=== PATIENT | female | born 1965 | race American Indian/Alaskan Native ===

== ENCOUNTER 2019-01-16 01:07 | Observation (INO) | payer BC ==
[2019-01-16] MEDS ORDERED: ASPIRIN PO ONE (01:29)
[2019-01-16 01:46] LABS: Basophils # (Auto) 0.1 K/mm3 (0.0-0.1); Eosinophils # (Auto) 0.1 K/mm3 (0.0-0.4); Eosinophils % (Auto) 1.7 % (0.0-4.3); Hemoglobin 12.1 gm/dl (10.1-14.3); Lymphocytes # (Auto) 2.6 K/mm3 (1.2-5.4); Lymphocytes % (Auto) 35.1 % (13.4-35.0); Mean Corpuscular HGB Conc 34 % (30-34); Mean Corpuscular Volume 86 fl (79-97); Monocytes # (Auto) 0.5 K/mm3 (0.0-0.8); Monocytes % (Auto) 7.3 % (0.0-7.3); Platelet Count 174 K/mm3 (140-440); Red Blood Count 4.19 M/mm3 (3.65-5.03); Red Cell Distribution Width 13.4 % (13.2-15.2)
[2019-01-16 02:06] LABS: BUN/Creatinine Ratio 14; Blood Urea Nitrogen 10 mg/dL (7-17); Calcium 9.3 mg/dL (8.4-10.2); Hemolysis Index 8
[2019-01-16] MEDS ORDERED: MORPHINE IV ONE (02:25)
--- NOTE | 2019-01-16 02:28 | Emergency Department Report ---
ED Chest Pain HPI - General Chief Complaint: Chest Pain Stated Complaint: CP/L SIDE FLANK PAIN/DIZZINESS Time Seen by Provider: 01/16/19 01:35 Source: patient Mode of arrival: Ambulatory Limitations: No Limitations - History of Present Illness Initial Comments: 53-year-old -[place] female presents to the emergency department with complaint of a three-day history of some left-sided lower chest and rib pain that has radiated into the middle of the chest. For the first 2 days it was an intermittent sharp and burning pain. However today it has become constant and is currently 9 out of 10 in intensity. She has no shortness of breath at rest b ut does have shortness of breath with the pain. She denies any nausea, vomiting, fever, back pain, diaphoresis. She took some Motrin at home for her symptoms without any relief. No recent travel or sick contacts at home. Her primary care physician is Dr. Castillo. She does not have any diamond driller. The patient says that she had a negative stress test about 2 or 3 years ago. She has a past medical history of diabetes. Severity scale (0 -10): 5 - Related Data Previous Rx's Medication Instructions Recorded Last Taken Type Aspirin EC [Aspirin Enteric Coated 81 mg PO QDAY #30 tablet. 09/08/16 Unknown Rx TAB] Allergies Allergy/AdvReac Type Severity Reaction Status Date / Time No Known Allergies Allergy Unverified 04/01/14 07:13 Heart Score - HEART Score History: Moderately suspicious EKG: Normal Age: 45-65 Risk factors: 1-2 risk factors Troponin: < normal limit HEART Score: 3 - Critical Actions Critical Actions: 0-3 pts:0.9-1.7%risk of adverse cardiac event.Candidate for discharge ED Review of Systems ROS: Stated complaint: CP/L SIDE FLANK PAIN/DIZZINESS Other details as noted in HPI Comment: All other systems reviewed and negative Constitutional: denies: chills, fever Eyes: denies: eye pain, vision change ENT: denies: ear pain, throat pain Respiratory: shortness of breath. denies: cough Cardiovascular: chest pain. denies: palpitations Gastrointestinal: denies: abdominal pain, vomiting Genitourinary: denies: dysuria, discharge Musculoskeletal: denies: back pain, arthralgia Skin: denies: rash, lesions Neurological: denies: headache, weakness ED Past Medical Hx - Past Medical History Previous Medical History?: Yes Hx Hypertension: Yes Hx Diabetes: Yes Additional medical history: Divertuculosis - Surgical History Past Surgical History?: Yes Additional Surgical History: HYSTERECTOMY - Social History Smoking Status: Never Smoker Substance Use Type: None - Medications Home Medications: Home Medications Medication Instructions Recorded Confirmed Last Taken Type Aspirin EC [Aspirin Enteric Coated 81 mg PO QDAY #30 tablet. 09/08/16 Unknown Rx TAB] ED Physical Exam - General Limitations: No Limitations - Other Other exam information: GENERAL: The patient is well-developed well-nourished. HENT: Normocephalic. Atraumatic. Patient has moist mucous membranes. EYES: Extraocular motions are intact. NECK: Supple. Trachea is midline. CHEST/LUNGS: Clear to auscultation. There is no respiratory distress noted. Chest pain is not reproducible to palpation of the chest wall. HEART/CARDIOVASCULAR: Regular. There is no tachycardia. There is no murmur. ABDOMEN: Abdomen is soft, nontender. Patient has normal bowel sounds. There is no abdominal distention. SKIN: Skin is warm and dry. NEURO: The patient is awake, alert, and oriented. The patient is cooperative. The patient has no focal neurologic deficits. The patient has normal speech. MUSCULOSKELETAL: There is no tenderness or deformity. There is no evidence of acute injury. ED Course Vital Signs 01/16/19 01/16/19 01/16/19 01:14 01:26 01:55 Temperature 97.8 F 98.2 F Pulse Rate 89 90 94 H Respiratory 18 18 22 Rate Blood Pressure 197/102 201/83 O2 Sat by Pulse 100 97 100 Oximetry 01/16/19 01/16/19 01/16/19 01:56 02:00 02:15 Temperature Pulse Rate 91 H 97 H Respiratory 18 20 20 Rate Blood Pressure 143/89 143/89 O2 Sat by Pulse 100 100 Oximetry 01/16/19 01/16/19 01/16/19 02:31 02:45 03:01 Temperature Pulse Rate 94 H 94 H 91 H Respiratory 20 11 L 16 Rate Blood Pressure 143/89 175/91 175/91 O2 Sat by Pulse 99 100 99 Oximetry 01/16/19 01/16/19 01/16/19 03:15 03:31 03:45 Temperature Pulse Rate 94 H 91 H 90 Respiratory 20 16 17 Rate Blood Pressure 175/91 175/91 175/91 O2 Sat by Pulse 98 98 98 Oximetry 01/16/19 01/16/19 04:01 04:15 Temperature Pulse Rate 90 89 Respiratory 18 17 Rate Blood Pressure 175/91 175/91 O2 Sat by Pulse 99 100 Oximetry RANJIT score - Ranjit Score Age > 65: (0) No Aspirin use within the Past 7 Days: (1) Yes 3 or more CAD Risk Factors: (0) No 2 or more Angina events in past 24 hrs: (1) Yes Known CAD with more than 50% Stenosis: (0) No Elevated Cardiac Markers: (0) No ST Deviation Greater than 0.5mm: (0) No RANJIT Score: 2 ED Medical Decision Making - Lab Data Result diagrams: 01/16/19 01:31 01/16/19 01:34 - EKG Data -: EKG Interpreted by Me EKG shows normal: sinus rhythm, axis, intervals, QRS complexes, ST-T waves Rate: normal - EKG Data When compared to previous EKG there are: no significant change Interpretation: normal EKG, unchanged when compared t (09/08/16) - Radiology Data Radiology results: report reviewed, image reviewed interpreted by me: Chest x-ray does not show any acute process. There are no pleural effusions, obvious pneumonia and there is no pneumothorax. PROCEDURE: CT ANGIO CHEST TECHNIQUE: Computerized tomographic angiography of the chest was performed after the IV injection of iodinated nonionic contrast including image processing. The image data was postprocessed using 2-dimensional multiplanar reformatted (MPR) and 3-dimensional (MIP and/or volume rendered) techniques. Automated exposure control, adjustment of mA and/or kV according to patient size, or iterative reconstruction dose optimization techniques were utilized. HISTORY: chest pain, elevated dimer COMPARISONS: None . FINDINGS: Heart and pericardium: Normal. Thoracic aorta: Normal. Pulmonary vasculature: There is no evidence of pulmonary arterial emboli. Lymph nodes: No enlarged thoracic lymph nodes. Lungs: Lungs are clear. No infiltrate, effusion or pneumothorax. Pleural space: No effusion, thickening, or pneumothorax. Musculoskeletal structures: No significant abnormality. Upper abdominal structures: No significant abnormality. IMPRESSION: There is no evidence of pulmonary arterial emboli. The lungs are clear. . This document is electronically signed by Daily Maciel DO., January 16 2019 04:58:47 AM ET Transcribed By: [facility] Dictated By: DAILY MACIEL MD Electronically Authenticated By: DAILY MACIEL MD Signed Date/Time: 01/16/19 0502 - Medical Decision Making This patient presents to the emergency department with a 3 day history of progressively worsening left-sided chest pain that now radiates into his middle of her chest. It is been about 2 or 3 years since the patient had a stress test. EKG does not show any signs of ST elevation VA. Chest x-ray is unremarkable. Patient's labs have been mostly unremarkable including negative troponins 2, but she does have a elevated d-dimer of greater than 1000. This reason a CT angiography of the chest was done that does not show any pulmonary embolism, dissection, aneurysm, or any other acute processes. The patient was given some pain medication but still continues to have some intermittent chest pains. I spoke with the patient's primary care physician, Dr. Castillo, who has graciously agreed to admit the patient to his service and has asked for bridging orders to be placed including a Lexiscan stress test. - Differential Diagnosis VA, PE, Costochondritis, GERD, pneumonia Critical Care Time: No Critical care attestation.: If time is entered above; I have spent that time in minutes in the direct care of this critically ill patient, excluding procedure time. ED Disposition Clinical Impression: Acute chest pain Hypertension Qualifiers: Hypertension type: essential hypertension Qualified Code(s): I10 - Essential (primary) hypertension Disposition: OP ADMIT IP TO THIS HOSP Is pt being admited?: Yes Condition: Fair Instructions: Chest Pain (ED), Hypertension (ED) Referrals: HELLEN BRANDT MD [Primary Care Provider] - 3-5 Days Time of Disposition: 05:25
--- NOTE | 2019-01-16 02:29 | XRay Report ---
PROCEDURE: XR CHEST 1V AP TECHNIQUE: Chest radiograph single view. HISTORY: Chest Pain COMPARISONS: 09/07/2016 . FINDINGS: Heart: Normal. Mediastinum/Vessels: Normal. Lungs/Pleural space: Normal. Bony thorax: No acute osseous abnormality. Life support devices: None. IMPRESSION: No acute cardiopulmonary abnormality. This document is electronically signed by Gurpreet Hart MD., January 16 2019 02:27:21 AM ET
--- NOTE | 2019-01-16 05:02 | Cat Scan Report ---
PROCEDURE: CT ANGIO CHEST TECHNIQUE: Computerized tomographic angiography of the chest was performed after the IV injection of iodinated nonionic contrast including image processing. The image data was postprocessed using 2-di mensional multiplanar reformatted (MPR) and 3-dimensional (MIP and/or volume rendered) techniques. Au tomated exposure control, adjustment of mA and/or kV according to patient size, or iterative reconstr uction dose optimization techniques were utilized. HISTORY: chest pain, elevated dimer COMPARISONS: None . FINDINGS: Heart and pericardium: Normal. Thoracic aorta: Normal. Pulmonary vasculature: There is no evidence of pulmonary arterial emboli. Lymph nodes: No enlarged thoracic lymph nodes. Lungs: Lungs are clear. No infiltrate, effusion or pneumothorax. Pleural space: No effusion, thickening, or pneumothorax. Musculoskeletal structures: No significant abnormality. Upper abdominal structures: No significant abnormality. IMPRESSION: There is no evidence of pulmonary arterial emboli. The lungs are clear. . This document is electronically signed by Daily Maciel DO., January 16 2019 04:58:47 AM ET
[2019-01-16] MEDS ORDERED: LOPRESSOR IV ONE (05:25)
[2019-01-16] MEDS ORDERED: MORPHINE IV PRN (09:09)
[2019-01-16] MEDS ORDERED: SODIUM CHLORIDE FLUSH SYRINGE 10 ML IV PRN (09:09)
--- NOTE | 2019-01-16 09:26 | History and Physical Report ---
History of Present Illness Date of examination: 01/16/19 Date of admission: 01/16/19 05:10 Chief complaint: Chest pain for 3 days History of present illness: Patient is a 43-year-old lady was a history of diabetes mellitus and hypertension who presented emergency Department on account of left-sided chest pain for the past 3 days. Initially intermittent but subsequently became constant. Exertional. Associated with shortness of breath. Denies any radiation. No orthopnea, proximal nocturnal dyspnea or palpitation. On admission to the emergency department systolic blood pressure was 173. EKG was unremarkable. Serial cardiac enzymes 2 were normal. Patient had elevated d- dimer for which CTA of the chest was done. Report was negative for any pulmonary embolism. Pt was commenced on oxygen, nitroglycerin, aspirin and morphine. Stress test was ordered since she has not had one for the past 2 years with multiple risk factors that includes hypertensive emergency and diabetes mellitus. Patient was also noted to have elevated blood sugar of 225. She was commenced on sliding scale insulin and consistent CHO diet. Past History Past Medical History: diabetes, hypertension, other (diverticulosis) Past Surgical History: hysterectomy Social history: denies: smoking, alcohol abuse, prescription drug abuse Family history: no significant family history Medications and Allergies Allergies Allergy/AdvReac Type Severity Reaction Status Date / Time No Known Allergies Allergy Unverified 04/01/14 07:13 Home Medications Medication Instructions Recorded Confirmed Last Taken Type AtorvaSTATin [Lipitor] 10 mg PO QHS 01/16/19 01/16/19 01/15/19 History Cyanocobalamin (Vitamin B-12) 1,000 mcg PO DAILY 01/16/19 01/16/19 01/15/19 History [Vitamin B12] Gabapentin [Neurontin] 100 mg PO Q8HR 01/16/19 01/16/19 01/15/19 History Glimepiride [Amaryl] 2 mg PO DAILY 01/16/19 01/16/19 01/15/19 History Insulin Glargine,Hum.rec.anlog 20 units SQ QHS 01/16/19 01/16/19 01/15/19 History [Toujennie Solostar] Lispro Insulin [HumaLOG] 8 unit SQ AC 01/16/19 01/16/19 01/15/19 History Losartan Potassium 100 mg PO DAILY 01/16/19 01/16/19 01/15/19 History Meloxicam [Mobic] 15 mg PO DAILY 01/16/19 01/16/19 01/15/19 History Vitamin D3 Complete Caplet 25 mcg PO DAILY 01/16/19 01/16/19 01/15/19 History Active Meds: Active Medications Amlodipine Besylate (Norvasc) 5 mg PO QDAY [facility] Aspirin (Ecotrin) 325 mg PO QDAY [facility] Atorvastatin Calcium (Lipitor) 40 mg PO QHS [facility] Gabapentin (Neurontin) 100 mg PO Q8HR [facility] Insulin Human Lispro (Humalog) 8 unit SUB-Q AC [facility] Losartan Potassium (Cozaar) 100 mg PO QDAY [facility] Miscellaneous Medication (Cyanocobalamin (Vitamin B-12) [Vitamin B12]) 1,000 mcg PO DAILY [facility] Miscellaneous Medication (Insulin Glargine,Hum.Rec.Anlog [Toujennie Solostlucius]) 20 units SQ QHS [facility] Miscellaneous Medication (Vitamin D3 Complete Caplet) 25 mcg PO DAILY [facility] Morphine Sulfate (Morphine) 2 mg IV Q4H PRN PRN Reason: Chest Pain unrelieved by NTG Nitroglycerin (Nitro-Bid 2%) 1 inch TP BIDNTG [facility]; Protocol Sodium Chloride (Sodium Chloride Flush Syringe 10 Ml) 10 ml IV PRN PRN PRN Reason: LINE FLUSH Review of systems Constitutional: Well Nourished and Well developed. Head: NC/ AT Eyes: Denies any visual impairments. No discharge from the eyes Nose: Denies any rhinorrhea or epistaxis Throats: Denies any post nasal drainage. Ears: Denies any hearing deficits Cardiovascular system: Denies any chest pain, shortness of breath, orthopnea, p aroxysmal nocturnal dyspnea, or palpitation. Respiratory system: Denies any cough, difficulty breathing, wheezing, pleuritic chest pain, Gastrointestinal system: Denies any abdominal pain, nausea vomiting, hematemesis or melena. Neurological system: Denies any headache, slurred speech, facial droop, lateralizing weakness Genitalia system: Denies any dysuria, urinary frequency or urgency, urethral discharge Skin: No rashes, hyperpigmented spots. Hematological: Denies any cervical tenderness hemorrhages or petechia. Immunological: Denies any multiple septic spots, Lymphatic: Denies any generalized lymphadenopathy. Endocrine: Denies any polyuria, polydipsia, polyphagia. No heat or cold intolerance. Musculoskeletal system: No joint pain or swelling. Psych: No visual, tactile, auditory or hallucination Exam - Physical Exam Narrative exam: Constitutional: Well-nourished well-developed. In no distress Head: Normocephalic atraumatic Eyes: Pupils are equal round and reactive to light Nose: No enlarged turbinates, no septal deviation. Mouth: Moist mucous membranes. Neck: Supple no thyromegaly. No bruit. No JVD Heart: Regular rate and rhythm, S1-S2 normal. No rubs murmurs or gallop Lungs: Clear to auscultation bilaterally. no rales or rhonchi Abdomen: Soft, nontender. Bowel sound are present. Extremities: No edema, no cyanosis, no clubbing. Neuro: Alert oriented Oriented x3. No focal sensory or motor deficit. Skin: No rashes or hyperpigmented spots Musculoskeletal system: No joint pain or swelling Hematological: No petechia or subcutanous hemorrhages. Immunological: No multiple septic spots on the skin Lymphatic: No generalized lymphadenopathy Psychiatry: Euthymic. Calm. - Constitutional Vitals: Temp Pulse Resp BP Pulse Ox 98.6 F 85 16 156/72 100 01/16/19 07:33 01/16/19 07:33 01/16/19 07:33 01/16/19 07:33 01/16/19 07:33 Results - Labs CBC & Chem 7: 01/16/19 01:31 01/16/19 01:34 Labs: Abnormal lab results 01/16/19 01/16/19 01/16/19 Range/Units 01:31 01:34 03:02 Lymph % (Auto) 35.1 H (13.4-35.0) % D-Dimer 1268.44 H (0-234) ng/mlDDU Sodium 146 H (137-145) mmol/L Glucose 225 H (65-100) mg/dL POC Glucose (70-105) 01/16/19 Range/Units 08:08 Lymph % (Auto) (13.4-35.0) % D-Dimer (0-234) ng/mlDDU Sodium (137-145) mmol/L Glucose (65-100) mg/dL POC Glucose 178 H (70-105) Assessment and Plan 5 by mouth daily was a history of hypertension and diabetes mellitus presented to the emergency department on account of 3 day history of chest pain. Initial set of cardiac enzymes were normal. EKG was normal. I delivered blood pressure 173 and blood sugar. This was commenced on oxygen nitroglycerin has been on morphine. Stress test was ordered. Blood pressure control was commenced with oral antihypertensives. - Chest pain Troponin T 2 were normal. Comments patient oxygen nitroglycerin and aspirin and morphine. Stress thallium ordered - Hypertensive emergency Commence patient on losartan 100 mg daily, Amlodipine 10 mg daily - Diabetes mellitus type 2 Obtain A1c, lipid panel, urine microalbumin, Commence sliding scale insulin Consistent carbohydrates diet -ACP: Patient is full code. - Disposition: Discharge patient home if stress thallium is normal and blood pressure controlled. - Time spent: 35 minutes in direct patient care and review of laboratory and radiological data.
[2019-01-16] MEDS ORDERED: D50W (25GM) Syringe IV PRN (09:32)
[2019-01-16] MEDS ORDERED: CYANOCOBALAMIN 1000 MCG PO SCH (10:00)
[2019-01-16] MEDS ORDERED: VITAMIN D3 COMPLETE PO SCH (10:00)
[2019-01-16] MEDS ORDERED: LEXISCAN IV ONE (10:18)
[2019-01-16 13:06] LABS: Basophils % (Auto) 0.4 % (0.0-1.8); Eosinophils # (Auto) 0.1 K/mm3 (0.0-0.4); Eosinophils % (Auto) 1.2 % (0.0-4.3); Hematocrit 36.6 % (30.3-42.9); Hemoglobin 12.5 gm/dl (10.1-14.3); Lymphocytes # (Auto) 2.3 K/mm3 (1.2-5.4); Lymphocytes % (Auto) 32.9 % (13.4-35.0); Mean Corpuscular HGB Conc 34 % (30-34); Mean Corpuscular Volume 85 fl (79-97); Monocytes # (Auto) 0.4 K/mm3 (0.0-0.8); Platelet Count 182 K/mm3 (140-440); Red Blood Count 4.29 M/mm3 (3.65-5.03); Red Cell Distribution Width 13.1 % (13.2-15.2)
[2019-01-16] MEDS: NEURONTIN PO SCH ×3 (13:14→22:43)
[2019-01-16] MEDS: COZAAR PO SCH (13:31)
[2019-01-16] MEDS: NORVASC PO SCH (13:32)
[2019-01-16] MEDS: NITRO-BID 2% TP SCH (13:33)
[2019-01-16] MEDS: HumaLOG SUB-Q SCH ×2 (13:35→16:17)
[2019-01-16 13:39] LABS: BUN/Creatinine Ratio 18; Blood Urea Nitrogen 9 mg/dL (7-17); Chol/HDL Ratio 2.59 %; HDL Cholesterol 49 mg/dL (40-59); Hemolysis Index 18; LDL Cholesterol,Direct 70 mg/dL (50-130)
[2019-01-16 18:21] LABS: Creatinine,Urine 66.2 mg/dL (0.1-20.0); Microalbumin/Creatinine Ratio 63.4 ug/mg
[2019-01-16] MEDS ORDERED: INSULIN GLARGINE HUM REC ANLOG 20 UNIT SQ SCH (22:00)
[2019-01-16] MEDS ORDERED: LANTUS SUB-Q SCH (22:00)
--- NOTE | 2019-01-17 04:18 | Treadmill Report ---
NUCLEAR PERFUSION SCAN REFERRING PHYSICIAN: Keyonna Castillo MD PROTOCOL: The patient was brought to the stress lab in a postabsorptive state, given 10 mCi of technetium 99m at rest. The patient underwent rest imaging. The patient underwent Lexiscan stress test. At peak stress, the patient was given 26 mCi of technetium 99m. Shortly thereafter, the patient underwent stress imaging. Raw imaging reveals mild GI artifact. No significant motion artifact. A SPECT imaging examined carefully in horizontal long axis, vertical long axis, and short axis views. There is normal homogenous uptake of radioisotope in all reported segments. No evidence of significant fixed or reversible perfusion defects suggestive of prior infarction or ischemia. Gated wall motion reveals normal systolic thickening and calculated ejection fraction of 55%. No TID. CONCLUSIONS: 1. Normal myocardial perfusion scan without evidence of active ischemia or prior infarction. 2. Normal left ventricular systolic performance without evidence of transient ischemic dilatation or stress-induced segmental wall motion abnormalities. [facility]# [id number] ELINA/AURELIO
[2019-01-17] MEDS: NITRO-BID 2% TP SCH ×2 (06:46→13:57)
[2019-01-17] MEDS: NEURONTIN PO SCH ×2 (06:46→13:56)
[2019-01-17 07:15] LABS: INR 1.03 (0.87-1.13)
[2019-01-17 07:25] LABS: Alanine Aminotransferase 8 units/L (7-56); Albumin 3.4 g/dL (3.9-5); BUN/Creatinine Ratio 13; Blood Urea Nitrogen 8 mg/dL (7-17); Hemolysis Index 12
[2019-01-17] MEDS ORDERED: ECOTRIN PO SCH (10:00)
[2019-01-17] MEDS ORDERED: VITAMIN B-12 PO SCH (10:00)
[2019-01-17] MEDS ORDERED: ZESTRIL PO SCH (10:00)
[2019-01-17] MEDS ORDERED: VITAMIN D3 PO SCH (10:00)
[2019-01-17] MEDS: NORVASC PO SCH (11:07)
[2019-01-17] MEDS: COZAAR PO SCH (11:08)
[2019-01-17] MEDS: HumaLOG SUB-Q SCH ×2 (11:09→13:56)
[2019-01-17 11:10] VITALS: BP 152/69
--- NOTE | 2019-01-17 12:09 | Discharge Summary ---
Providers - Providers Date of Admission: 01/16/19 05:10 Date of discharge: 01/17/19 Attending physician: VIJAY DELGADO 01/16/19 Consult to Cardiac Rehabilitation [CONS] Routine Reason For Exam: Phase I 01/16/19 09:32 Consult to Dietitian/Nutrition [CONS] Routine Physician Instructions: Reason For Exam: Reason for Consult: Diet education Primary care physician: HELLEN BRANDT Hospitalization Reason for admission: chest pain, hypertensive emergency, diabetes mellitus Condition: Fair Pertinent studies: EKG was normal, decision was unremarkable for any acute events, CT angiography chest that showed no PE, stress test that was normal Procedures: None Hospital course: Patient is a 43-year-old lady was a history of diabetes mellitus and hypertension who presented emergency Department on account of left-sided chest pain for the past 3 days. Initially intermittent but subsequently became constant. Exertional. Associated with shortness of breath. Denies any radiation. No orthopnea, proximal nocturnal dyspnea or palpitation. On admission to the emergency department systolic blood pressure was 173. EKG was unremarkable. Serial cardiac enzymes 2 were normal. Patient had elevated d- dimer for which CTA of the chest was done. Report was negative for any pulmonary embolism. Pt was commenced on oxygen, nitroglycerin, aspirin and morphine. Stress test was ordered since she has not had one for the past 2 years with multiple risk factors that includes hypertensive emergency, strong family history of myocardial infarction, and diabetes mellitus. Patient was also noted to have elevated blood sugar of 225. She was commenced on sliding scale insulin and consistent CHO diet. Blood pressure on blood sugar levels were improved. Stress test was done. Report was normal. Patient is therefore been discharged today to follow with me in 2-5 days. Disposition: - TO HOME OR SELFCARE Core Measure Documentation - Palliative Care Palliative Care/ Comfort Measures: Not Applicable - Core Measures Any of the following diagnoses?: none Exam - Physical Exam Narrative exam: Constitutional: Well-nourished well-developed. In no distress Head: Normocephalic atraumatic Eyes: Pupils are equal round and reactive to light Nose: No enlarged turbinates, no septal deviation. Mouth: Moist mucous membranes. Neck: Supple no thyromegaly. No bruit. No JVD Heart: Regular rate and rhythm, S1-S2 normal. No rubs murmurs or gallop Lungs: Clear to auscultation bilaterally. no rales or rhonchi Abdomen: Soft, nontender. Bowel sound are present. Extremities: No edema, no cyanosis, no clubbing. Neuro: Alert oriented Oriented x3. No focal sensory or motor deficit. Skin: No rashes or hyperpigmented spots Musculoskeletal system: No joint pain or swelling Hematological: No petechia or subcutanous hemorrhages. Immunological: No multiple septic spots on the skin Lymphatic: No generalized lymphadenopathy Psychiatry: Euthymic. Calm. - Constitutional Vitals: Temp Pulse Resp BP Pulse Ox 98.0 F 91 H 18 152/69 97 01/17/19 04:01 01/17/19 11:09 01/17/19 04:01 01/17/19 11:09 01/16/19 23:56 Plan Activity: advance as tolerated Weight Bearing Status: Weight Bear as Tolerated Diet: diabetic Follow up with: VIJAY DELGADO MD [Staff Physician] - 7 Days HELLEN BRANDT MD [Primary Care Provider] - 14 Days Forms: Work/School Release Form Prescriptions: Aspirin EC 81 mg PO QDAY #30 tablet Lispro Insulin [HumaLOG] 8 unit SQ AC #300 units AtorvaSTATin [Lipitor] 20 mg PO QHS #30 tablet Losartan Potassium 100 mg PO DAILY #30 tablet amLODIPine [Norvasc] 10 mg PO QDAY #30 tablet Cyanocobalamin [Vitamin B-12] 1,000 mcg PO QDAY #30 tablet Cholecalciferol Vit D3 [Vitamin D3 1,000 UNIT TAB] 1,000 unit PO QDAY #30 tablet
== END 2019-01-17 15:30 | disposition home or self-care (01) ==
LOC: ED 01:07 → EEVIPCON 01:07 → 4A 05:10
PROVIDERS: ADMIT Family Medicine; ATTEND Family Medicine
DX: R07.89 Other chest pain (principal); I10 Essential (primary) hypertension; E11.9 Type 2 diabetes mellitus without complications; I16.0 Hypertensive urgency; Z90.710 Acquired absence of both cervix and uterus
CPT/HCPCS: 36415; 71045; 71275; 78452; 80048; 80053; 80061; 82043; 82962; 83036; 83735; 83880; 84100; 84484; 85025; 85379; 85610; 93005; 93010; 93017; 96372; 96374; 99284; A9270; A9502; G0378; J2270; J2785; J3246; Q9967; J1815

== ENCOUNTER 2019-01-26 08:58 | Outpatient (CLI) | payer BC ==
--- NOTE | 2019-01-26 11:46 | Cat Scan Report ---
CT ABDOMEN AND PELVIS WITH CONTRAST HISTORY: ABDOMINAL PAIN LEFT. COMPARISON: None. TECHNIQUE: CT images of the abdomen and pelvis were obtained following administration of intravenous contrast. All CT scans at this location are performed using CT dose reduction for ALARA by means of automated exposure control. CONTRAST: 100 ml of intravenous contrast administered. FINDINGS: Lungs/bones: The lung bases are clear. Normal heart size. [id number] thoracolumbar spondylosis is noted. No fracture or suspicious bony lesion Abdomen/pelvis: There are a few small calcified gallstones in the gallbladder. The gallbladder is pa rtially contracted. No evidence for biliary dilatation, wall thickening or obvious choledocholithiasi s. Normal pancreas, spleen, kidneys and adrenal glands. The bowel loops are within normal limits. No evidence for obstruction or focal inflammation. Normal a ppendix. Hysterectomy changes are noted. A 1.8 cm left ovarian cyst is identified. The right adnexa is unremar kable. The kidneys, renal collecting systems and bladder are unremarkable. No evidence for ascites, free air or bulky adenopathy IMPRESSION: 1. No acute inflammatory process. 2. 1.8 cm left ovarian cyst. 3. Cholelithiasis. 4. Hysterectomy. Signer Name: Patric Tobias Jr, MD Signed: 01/26/2019 12:42 PM Workstation Name: [id number]
== END 2019-01-26 08:59 | disposition home or self-care (01) ==
LOC: CT 08:58
PROVIDERS: ATTEND Family Medicine
DX: K80.20 Calculus of gallbladder without cholecystitis without obstruction (principal); N83.202 Unspecified ovarian cyst, left side; M47.815 Spondylosis without myelopathy or radiculopathy, thoracolumbar region; I10 Essential (primary) hypertension; Z90.710 Acquired absence of both cervix and uterus
CPT/HCPCS: 74177; Q9967

== ENCOUNTER 2021-02-14 19:30 | Emergency (ER) | payer BC ==
[2021-02-14 20:03] VITALS: BP 148/76
[2021-02-14] MEDS ORDERED: SODIUM CHLORIDE 0.9% 1000 ML 1,000 ML IV ONE ×2 (22:10→23:31)
[2021-02-14] MEDS ORDERED: KETOROLAC 30 MG/1 ML INJ IV ONE (22:12)
[2021-02-14 23:13] LABS: Basophils # (Auto) 0.1 K/mm3 (0.0-0.1); Basophils % (Auto) 0.8 % (0.0-1.8); Eosinophils % (Auto) 0.1 % (0.0-4.3); Hematocrit 33.6 % (30.3-42.9); Hemoglobin 11.2 gm/dl (10.1-14.3); Lymphocytes # (Auto) 1.4 K/mm3 (1.2-5.4); Lymphocytes % (Auto) 7.9 % (13.4-35.0); Mean Corpuscular HGB Conc 34 % (30-34); Mean Corpuscular Volume 84 fl (79-97); Monocytes # (Auto) 1.3 K/mm3 (0.0-0.8); Monocytes % (Auto) 7.2 % (0.0-7.3); Platelet Count 201 K/mm3 (140-440); Red Cell Distribution Width 13.3 % (13.2-15.2)
[2021-02-14 23:26] LABS: Albumin 3.4 g/dL (3.9-5); Calcium 8.5 mg/dL (8.4-10.2)
--- NOTE | 2021-02-14 23:37 | Emergency Department Report ---
ED General Adult HPI - General Chief complaint: Wound/Laceration Stated complaint: LT FOOT ULCER SENT BY DR ELY?: No Time Seen by Provider: 02/14/21 20:51 Source: patient Mode of arrival: Ambulatory Limitations: No Limitations - History of Present Illness Initial comments: This is a 55-year-old female with a past medical history of diabetes mellitus type 2 controlled with medication who presents to the ED complaining of left leg redness and swelling x2 to 3 days. Patient states that she went to see her primary care today Dr. Delgado who told her to present to the emergency room for treatment. Patient denies any fever, chills, nausea vomiting or diarrhea. Patient states that she did notice wound at the bottom of her foot about a week ago. Severity scale (0 -10): 3 - Related Data Home Medications Medication Instructions Recorded Confirmed Last Taken Cyanocobalamin (Vitamin B-12) 1,000 mcg PO DAILY 01/16/19 01/16/19 01/15/19 [Vitamin B12] Glimepiride [Amaryl] 2 mg PO DAILY 01/16/19 01/16/19 01/15/19 Insulin Glargine,Hum.rec.anlog 20 units SQ QHS 01/16/19 01/16/19 01/15/19 [Toujeo Solostar] Vitamin D3 Complete Caplet 25 mcg PO DAILY 01/16/19 01/16/19 01/15/19 Previous Rx's Medication Instructions Recorded Last Taken Type Aspirin EC [Ecotrin] 81 mg PO QDAY #30 tablet 01/17/19 Unknown Rx AtorvaSTATin [Lipitor] 20 mg PO QHS #30 tablet 01/17/19 Unknown Rx Cholecalciferol Vit D3 [Vitamin D3 1,000 unit PO QDAY #30 tablet 01/17/19 Unknown Rx 1,000 UNIT TAB] Cyanocobalamin [Vitamin B-12] 1,000 mcg PO QDAY #30 tablet 01/17/19 Unknown Rx Gabapentin 100 mg PO Q8HR capsule 01/17/19 Unknown Rx Insulin Glargine [Lantus VIAL] 20 units SUB-Q QHS units 01/17/19 Unknown Rx Lispro Insulin [HumaLOG] 8 unit SQ AC #300 units 01/17/19 Unknown Rx Losartan Potassium 100 mg PO DAILY #30 tablet 01/17/19 Unknown Rx amLODIPine 10 mg PO QDAY #30 tablet 01/17/19 Unknown Rx Clindamycin [Clindamycin CAP] 300 mg PO Q8H #30 cap 02/15/21 Unknown Rx Ibuprofen [Motrin] 800 mg PO Q8HR #30 tablet 02/15/21 Unknown Rx Allergies Allergy/AdvReac Type Severity Reaction Status Date / Time No Known Allergies Allergy Unverified 04/01/14 07:13 ED Review of Systems ROS: Stated complaint: LT FOOT ULCER SENT BY Other details as noted in HPI Comment: All other systems reviewed and negative ED Past Medical Hx - Past Medical History Previous Medical History?: Yes Hx Hypertension: Yes Hx Diabetes: Yes Additional medical history: Divertuculosis - Surgical History Past Surgical History?: Yes Additional Surgical History: HYSTERECTOMY - Social History Smoking Status: Never Smoker - Medications Home Medications: Home Medications Medication Instructions Recorded Confirmed Last Taken Type Cyanocobalamin (Vitamin B-12) 1,000 mcg PO DAILY 01/16/19 01/16/19 01/15/19 History [Vitamin B12] Glimepiride [Amaryl] 2 mg PO DAILY 01/16/19 01/16/19 01/15/19 History Insulin Glargine,Hum.rec.anlog 20 units SQ QHS 01/16/19 01/16/19 01/15/19 History [Toujeo Solostar] Vitamin D3 Complete Caplet 25 mcg PO DAILY 01/16/19 01/16/19 01/15/19 History Aspirin EC [Ecotrin] 81 mg PO QDAY #30 tablet 01/17/19 Unknown Rx AtorvaSTATin [Lipitor] 20 mg PO QHS #30 tablet 01/17/19 Unknown Rx Cholecalciferol Vit D3 [Vitamin D3 1,000 unit PO QDAY #30 tablet 01/17/19 Unknown Rx 1,000 UNIT TAB] Cyanocobalamin [Vitamin B-12] 1,000 mcg PO QDAY #30 tablet 01/17/19 Unknown Rx Gabapentin 100 mg PO Q8HR capsule 01/17/19 Unknown Rx Insulin Glargine [Lantus VIAL] 20 units SUB-Q QHS units 01/17/19 Unknown Rx Lispro Insulin [HumaLOG] 8 unit SQ AC #300 units 01/17/19 Unknown Rx Losartan Potassium 100 mg PO DAILY #30 tablet 01/17/19 Unknown Rx amLODIPine 10 mg PO QDAY #30 tablet 01/17/19 Unknown Rx Clindamycin [Clindamycin CAP] 300 mg PO Q8H #30 cap 02/15/21 Unknown Rx Ibuprofen [Motrin] 800 mg PO Q8HR #30 tablet 02/15/21 Unknown Rx ED Physical Exam - General Limitations: No Limitations General appearance: alert, in no apparent distress - Head Head exam: Present: atraumatic, normocephalic - Eye Eye exam: Present: normal appearance - ENT ENT exam: Present: mucous membranes moist - Neck Neck exam: Present: normal inspection, full ROM - Respiratory Respiratory exam: Present: normal lung sounds bilaterally. Absent: respiratory distress, wheezes, rales, chest wall tenderness, accessory muscle use - Cardiovascular Cardiovascular Exam: Present: regular rate, normal rhythm. Absent: systolic murmur, diastolic murmur, rubs, gallop - GI/Abdominal GI/Abdominal exam: Present: soft, normal bowel sounds - Extremities Exam Extremities exam: Present: normal inspection, full ROM - Expanded Lower Extremity Exam Left Foot/Toe exam: Present: full ROM, tenderness, swelling, erythema. Absent: abrasion, laceration, ecchymosis, deformity, dislocation, puncture wound, foreign body Neuro vascular tendon exam: Present: no vascular compromise Gait: Positive: observed and normal - Back Exam Back exam: Present: normal inspection - Neurological Exam Neurological exam: Present: alert, oriented X3, CN II-XII intact, normal gait - Psychiatric Psychiatric exam: Present: normal affect, normal mood - Skin Skin exam: Present: warm, dry, intact, normal color. Absent: rash ED Course Vital Signs 02/14/21 02/15/21 20:02 03:30 Temperature 98.5 F Pulse Rate 107 H 93 H Respiratory 18 17 Rate Blood Pressure 148/76 O2 Sat by Pulse 99 100 Oximetry ED Medical Decision Making - Lab Data Result diagrams: 02/14/21 22:53 02/14/21 22:53 Laboratory Last Values WBC 17.3 K/mm3 (4.5-11.0) H 02/14/21 22:53 RBC 4.00 M/mm3 (3.65-5.03) 02/14/21 22:53 Hgb 11.2 gm/dl (10.1-14.3) 02/14/21 22:53 Hct 33.6 % (30.3-42.9) 02/14/21 22:53 MCV 84 fl (79-97) 02/14/21 22:53 MCH 28 pg (28-32) 02/14/21 22:53 MCHC 34 % (30-34) 02/14/21 22:53 RDW 13.3 % (13.2-15.2) 02/14/21 22:53 Plt Count 201 K/mm3 (140-440) 02/14/21 22:53 Lymph % (Auto) 7.9 % (13.4-35.0) L 02/14/21 22:53 Brantley % (Auto) 7.2 % (0.0-7.3) 02/14/21 22:53 Eos % (Auto) 0.1 % (0.0-4.3) 02/14/21 22:53 Baso % (Auto) 0.8 % (0.0-1.8) 02/14/21 22:53 Lymph # (Auto) 1.4 K/mm3 (1.2-5.4) 02/14/21 22:53 Brantley # (Auto) 1.3 K/mm3 (0.0-0.8) H 02/14/21 22:53 Eos # (Auto) 0.0 K/mm3 (0.0-0.4) 02/14/21 22:53 Baso # (Auto) 0.1 K/mm3 (0.0-0.1) 02/14/21 22:53 Seg Neutrophils % 84.0 % (40.0-70.0) H 02/14/21 22:53 Seg Neutrophils # 14.5 K/mm3 (1.8-7.7) H 02/14/21 22:53 Sodium 133 mmol/L (137-145) L 02/14/21 22:53 Potassium 4.3 mmol/L (3.6-5.0) 02/14/21 22:53 Chloride 97.0 mmol/L (98-107) L 02/14/21 22:53 Carbon Dioxide 20 mmol/L (22-30) L 02/14/21 22:53 Anion Gap 20 mmol/L 02/14/21 22:53 BUN 27 mg/dL (7-17) H 02/14/21 22:53 Creatinine 1.3 mg/dL (0.6-1.2) H 02/14/21 22:53 Estimated GFR 51 ml/min 02/14/21 22:53 BUN/Creatinine Ratio 21 % 02/14/21 22:53 Glucose 319 mg/dL (65-100) H 02/14/21 22:53 Lactic Acid 1.40 mmol/L (0.7-2.0) 02/14/21 22:53 Calcium 8.5 mg/dL (8.4-10.2) 02/14/21 22:53 Total Bilirubin 0.70 mg/dL (0.1-1.2) 02/14/21 22:53 AST 10 units/L (5-40) 02/14/21 22:53 ALT 8 units/L (7-56) 02/14/21:53 Alkaline Phosphatase 106 units/L (35-129) 02/14/21 22:53 Total Protein 7.3 g/dL (6.3-8.2) 02/14/21:53 Albumin 3.4 g/dL (3.9-5) L 02/14/21 22:53 Albumin/Globulin Ratio 0.9 % 02/14/21 22:53 - Medical Decision Making This is a 45-year-old female with a history of diabetes who presents with cell ulitis of the left foot. Leukocytosis is due to cellulitis of the foot. Lactic acid within normal limits all other labs within normal limits. Discussed all findings with the patient. Patient received 2 L of fluids in the ED. Patient received Zosyn and clindamycin in the emergency department. Patient is in no acute distress upon reevaluation patient was sleeping comfortably in the ED bed. Discussed continue oral antibiotics at home. Discussed follow-up with her primary care physician. Discussed with patient if any worsening symptoms she may return to the ED. Patient is ambulatory without any problems. Vital signs are normal she has no neurological deficit. At this time patient is safe for discharge with follow-up instructions with Dr ocasio Critical care attestation.: If time is entered above; I have spent that time in minutes in the direct care of this critically ill patient, excluding procedure time. ED Disposition Clinical Impression: Cellulitis of foot, Foot ulcer due to secondary DM Disposition: - TO HOME OR SELFCARE Is pt being admited?: No Does the pt Need Aspirin: No Condition: Stable Instructions: Diabetes Mellitus and Foot Care, Cellulitis, Adult, [id number], Diabetes Mellitus Type 2 in Adults (ED) Additional Instructions: Make sure to follow up with the primary care physician as discussed. Take all your medications as you've been prescribed. If you have any worsening symptoms or develop new symptoms please return to ED immediately. Prescriptions: Clindamycin [Clindamycin CAP] 300 mg PO Q8H #30 cap Ibuprofen [Motrin] 800 mg PO Q8HR #30 tablet Referrals: AGNES MORALES MD [Primary Care Provider] - 3-5 Days VIJAY DELGADO MD [Staff Physician] - 3-5 Days Forms: Work/School Release Form(ED) Time of Disposition: 01:39
[2021-02-15] MEDS ORDERED: PIPERACIL-TAZO 2.25 GM/50 ML 2.25 GM/50 ML BAG IV ONE (01:11)
== END 2021-02-15 03:30 | disposition home or self-care (01) ==
LOC: ED 19:30
DX: E11.621 Type 2 diabetes mellitus with foot ulcer (principal); L03.116 Cellulitis of left lower limb; I10 Essential (primary) hypertension; Z90.710 Acquired absence of both cervix and uterus; Z79.4 Long term (current) use of insulin; Z79.899 Other long term (current) drug therapy
CPT/HCPCS: 36415; 80053; 82140; 85025; 96361; 96365; 96367; 96375; 99283; J1885; J2543; J7030

== ENCOUNTER 2021-03-01 09:57 | Outpatient (CLI) | payer BC ==
[2021-03-01] MEDS ORDERED: LIDOCAINE (4%) 40 MG/ML TOPICAL SOLN 50 ML BOTTLE TP ONE (10:15)
[2021-03-01] MEDS ORDERED: SILVER NITRATE APPLICATOR 1 EA TP ONE (12:32)
[2021-03-01] MEDS ORDERED: SODIUM HYPOCHLORITE, DAKIN'S FULL STRENGTH (0.5%) 473 ML TOPICAL SOLN TP ONE (12:33)
== END 2021-03-01 09:58 | disposition home or self-care (01) ==
LOC: WOUND 09:57
PROVIDERS: ATTEND Surgery
DX: E11.621 Type 2 diabetes mellitus with foot ulcer (principal); L97.525 Non-pressure chronic ulcer of other part of left foot with muscle involvement without evidence of necrosis; I10 Essential (primary) hypertension; L84 Corns and callosities; Z79.82 Long term (current) use of aspirin; Z90.710 Acquired absence of both cervix and uterus
CPT/HCPCS: 11043; 11046; 82962; G0463; 99215

== ENCOUNTER 2021-03-08 10:30 | Outpatient (CLI) | payer BC ==
[2021-03-08] MEDS ORDERED: LIDOCAINE (4%) 40 MG/ML TOPICAL SOLN 50 ML BOTTLE TP SCH (11:00)
[2021-03-08] MEDS ORDERED: SILVER NITRATE APPLICATOR 1 EA TP ONE (11:40)
[2021-03-08] MEDS ORDERED: SODIUM HYPOCHLORITE, DAKIN'S FULL STRENGTH (0.5%) 473 ML TOPICAL SOLN TP ONE (11:51)
== END 2021-03-08 10:31 | disposition home or self-care (01) ==
LOC: WOUND 10:30
PROVIDERS: ATTEND Surgery
DX: E11.621 Type 2 diabetes mellitus with foot ulcer (principal); L97.524 Non-pressure chronic ulcer of other part of left foot with necrosis of bone; E11.69 Type 2 diabetes mellitus with other specified complication; M86.672 Other chronic osteomyelitis, left ankle and foot; I10 Essential (primary) hypertension; L84 Corns and callosities; Z79.82 Long term (current) use of aspirin; Z90.710 Acquired absence of both cervix and uterus

== ENCOUNTER 2021-03-10 10:31 | Outpatient (CLI) | payer BC ==
--- NOTE | 2021-03-10 11:22 | XRay Report ---
CHEST PA AND LATERAL VIEWS INDICATION: HBO CLEARANCE. COMPARISON: 01/16/2019 FINDINGS: Support devices: None. Heart: Within normal limits. Lungs/Pleura: There are couple faint nodular densities projecting over the right upper lung. This cou ld be artifact related to clothing or something else outside the patient. Lungs otherwise clear. No p leural abnormality. IMPRESSION: 1. There are a couple of faint subcentimeter nodular densities projecting over the right upper lung w hich could be artifact. PA and lateral radiographic follow-up is recommended. Signer Name: Efe Polo MD Signed: 03/10/2021 11:18 AM Workstation Name: [id number]
== END 2021-03-10 10:32 | disposition home or self-care (01) ==
LOC: XRAY 10:31
PROVIDERS: ATTEND Surgery
DX: M86.672 Other chronic osteomyelitis, left ankle and foot (principal); E11.621 Type 2 diabetes mellitus with foot ulcer
CPT/HCPCS: 36415; 71046; 83036

== ENCOUNTER 2021-03-15 10:13 | Outpatient (CLI) | payer BC ==
[2021-03-15] MEDS ORDERED: LIDOCAINE (4%) 40 MG/ML TOPICAL SOLN 50 ML BOTTLE TP SCH (10:30)
[2021-03-15] MEDS ORDERED: SODIUM HYPOCHLORITE, DAKIN'S FULL STRENGTH (0.5%) 473 ML TOPICAL SOLN TP ONE ×2 (11:05→12:30)
[2021-03-15] MEDS ORDERED: SILVER NITRATE APPLICATOR 1 EA TP ONE (12:00)
== END 2021-03-15 10:14 | disposition home or self-care (01) ==
LOC: WOUND 10:13
PROVIDERS: ATTEND Surgery
DX: E11.621 Type 2 diabetes mellitus with foot ulcer (principal); L97.524 Non-pressure chronic ulcer of other part of left foot with necrosis of bone; E11.69 Type 2 diabetes mellitus with other specified complication; M86.672 Other chronic osteomyelitis, left ankle and foot; I10 Essential (primary) hypertension; L84 Corns and callosities; Z79.82 Long term (current) use of aspirin; Z90.710 Acquired absence of both cervix and uterus
CPT/HCPCS: 88302; 88305; 88311

== ENCOUNTER 2021-03-22 10:21 | Outpatient (CLI) | payer BC ==
[2021-03-22] MEDS ORDERED: LIDOCAINE (4%) 40 MG/ML TOPICAL SOLN 50 ML BOTTLE TP SCH (11:00)
[2021-03-22] MEDS ORDERED: SODIUM CHLORIDE 0.9% IRR 500 ML BOTTLE IR ONE (11:15)
== END 2021-03-22 10:22 | disposition home or self-care (01) ==
LOC: WOUND 10:21
PROVIDERS: ATTEND Surgery
DX: E11.621 Type 2 diabetes mellitus with foot ulcer (principal); L97.524 Non-pressure chronic ulcer of other part of left foot with necrosis of bone; E11.69 Type 2 diabetes mellitus with other specified complication; M86.672 Other chronic osteomyelitis, left ankle and foot; I10 Essential (primary) hypertension; L84 Corns and callosities; Z79.82 Long term (current) use of aspirin; Z90.710 Acquired absence of both cervix and uterus
CPT/HCPCS: 82962

== ENCOUNTER 2021-03-27 09:35 | Outpatient (CLI) | payer BC ==
[2021-03-27] MEDS ORDERED: LIDOCAINE (4%) 40 MG/ML TOPICAL SOLN 50 ML BOTTLE TP SCH (10:00)
== END 2021-03-27 09:36 | disposition home or self-care (01) ==
LOC: WOUND 09:35
PROVIDERS: ATTEND Surgery
DX: E11.621 Type 2 diabetes mellitus with foot ulcer (principal); L97.524 Non-pressure chronic ulcer of other part of left foot with necrosis of bone; E11.69 Type 2 diabetes mellitus with other specified complication; M86.672 Other chronic osteomyelitis, left ankle and foot; I10 Essential (primary) hypertension; L84 Corns and callosities; Z79.82 Long term (current) use of aspirin; Z90.710 Acquired absence of both cervix and uterus

== ENCOUNTER 2021-04-05 10:10 | Outpatient (CLI) | payer BC ==
[2021-04-05] MEDS ORDERED: LIDOCAINE (4%) 40 MG/ML TOPICAL SOLN 50 ML BOTTLE TP ONE (10:36)
== END 2021-04-05 10:11 | disposition home or self-care (01) ==
LOC: WOUND 10:10
PROVIDERS: ATTEND Surgery
DX: E11.621 Type 2 diabetes mellitus with foot ulcer (principal); L97.524 Non-pressure chronic ulcer of other part of left foot with necrosis of bone; E11.69 Type 2 diabetes mellitus with other specified complication; M86.672 Other chronic osteomyelitis, left ankle and foot; I10 Essential (primary) hypertension; L84 Corns and callosities; Z79.82 Long term (current) use of aspirin; Z90.710 Acquired absence of both cervix and uterus

== ENCOUNTER 2021-04-12 08:09 | Outpatient (CLI) | payer BC ==
[2021-04-12] MEDS ORDERED: LIDOCAINE (4%) 40 MG/ML TOPICAL SOLN 50 ML BOTTLE TP ONE (08:16)
== END 2021-04-12 08:10 | disposition home or self-care (01) ==
LOC: WOUND 08:09
PROVIDERS: ATTEND Surgery
DX: E11.621 Type 2 diabetes mellitus with foot ulcer (principal); L97.524 Non-pressure chronic ulcer of other part of left foot with necrosis of bone; E11.69 Type 2 diabetes mellitus with other specified complication; M86.672 Other chronic osteomyelitis, left ankle and foot; I10 Essential (primary) hypertension; L84 Corns and callosities; Z79.82 Long term (current) use of aspirin; Z90.710 Acquired absence of both cervix and uterus

== ENCOUNTER 2021-04-19 09:59 | Outpatient (CLI) | payer BC ==
[2021-04-19] MEDS ORDERED: LIDOCAINE (4%) 40 MG/ML TOPICAL SOLN 50 ML BOTTLE TP ONE (10:59)
== END 2021-04-19 10:00 | disposition home or self-care (01) ==
LOC: WOUND 09:59
PROVIDERS: ATTEND Surgery
DX: E11.621 Type 2 diabetes mellitus with foot ulcer (principal); L97.524 Non-pressure chronic ulcer of other part of left foot with necrosis of bone; E11.69 Type 2 diabetes mellitus with other specified complication; M86.672 Other chronic osteomyelitis, left ankle and foot; I10 Essential (primary) hypertension; L84 Corns and callosities; Z79.82 Long term (current) use of aspirin; Z90.710 Acquired absence of both cervix and uterus

== ENCOUNTER 2021-04-26 09:29 | Outpatient (CLI) | payer BC ==
[2021-04-26] MEDS ORDERED: LIDOCAINE (4%) 40 MG/ML TOPICAL SOLN 50 ML BOTTLE TP ONE (09:49)
== END 2021-04-26 09:30 | disposition home or self-care (01) ==
LOC: WOUND 09:29
PROVIDERS: ATTEND Surgery
DX: E11.621 Type 2 diabetes mellitus with foot ulcer (principal); L97.524 Non-pressure chronic ulcer of other part of left foot with necrosis of bone; T87.89 Other complications of amputation stump; E11.69 Type 2 diabetes mellitus with other specified complication; M86.672 Other chronic osteomyelitis, left ankle and foot; I10 Essential (primary) hypertension; L84 Corns and callosities; Z79.82 Long term (current) use of aspirin; Z90.710 Acquired absence of both cervix and uterus; Y83.5 Amputation of limb(s) as the cause of abnormal reaction of the patient, or of later complication, without mention of misadventure at the time of the procedure
CPT/HCPCS: 11042; 82962; G0277; 99183

== ENCOUNTER 2021-04-27 10:41 | Outpatient (CLI) | payer BC | END 2021-04-27 10:42 | disposition home or self-care (01) | LOC: WOUND 10:41 | PROVIDERS: ATTEND Internal Medicine | DX: E11.621 Type 2 diabetes mellitus with foot ulcer (principal); L97.524 Non-pressure chronic ulcer of other part of left foot with necrosis of bone; T87.89 Other complications of amputation stump; E11.69 Type 2 diabetes mellitus with other specified complication; M86.672 Other chronic osteomyelitis, left ankle and foot; I10 Essential (primary) hypertension; L84 Corns and callosities; Z79.82 Long term (current) use of aspirin; Z90.710 Acquired absence of both cervix and uterus; Y83.5 Amputation of limb(s) as the cause of abnormal reaction of the patient, or of later complication, without mention of misadventure at the time of the procedure | CPT/HCPCS: 82962; G0277; 99183 ==

== ENCOUNTER 2021-04-28 10:00 | Outpatient (CLI) | payer BC | END 2021-04-28 10:01 | disposition home or self-care (01) | LOC: WOUND 10:00 | PROVIDERS: ATTEND Internal Medicine | DX: E11.621 Type 2 diabetes mellitus with foot ulcer (principal); L97.524 Non-pressure chronic ulcer of other part of left foot with necrosis of bone; T87.89 Other complications of amputation stump; E11.69 Type 2 diabetes mellitus with other specified complication; M86.672 Other chronic osteomyelitis, left ankle and foot; I10 Essential (primary) hypertension; L84 Corns and callosities; Z79.82 Long term (current) use of aspirin; Z90.710 Acquired absence of both cervix and uterus; Y83.5 Amputation of limb(s) as the cause of abnormal reaction of the patient, or of later complication, without mention of misadventure at the time of the procedure | CPT/HCPCS: 82962; G0277; 99183 ==

== ENCOUNTER 2021-05-01 09:22 | Outpatient (CLI) | payer BC ==
[2021-05-01 09:59] LABS: Bacteria,Urine 1+ /HPF (Negative); Bilirubin,Urine NEG (Negative); Blood,Urine SM (Negative); Color,Urine Yellow (Yellow); Urobilinogen,Urine < 2.0 mg/dL (<2.0)
[2021-05-01 10:10] LABS: Chol/HDL Ratio 3.55 %
== END 2021-05-01 09:23 | disposition home or self-care (01) ==
LOC: LAB 09:22
PROVIDERS: ATTEND Internal Medicine
DX: Z13.29 Encounter for screening for other suspected endocrine disorder (principal); E78.5 Hyperlipidemia, unspecified; E11.65 Type 2 diabetes mellitus with hyperglycemia
CPT/HCPCS: 36415; 80061; 81001; 84443

== ENCOUNTER 2021-05-01 10:44 | Outpatient (CLI) | payer BC | END 2021-05-01 10:45 | disposition home or self-care (01) | LOC: WOUND 10:44 | PROVIDERS: ATTEND Surgery | DX: E11.621 Type 2 diabetes mellitus with foot ulcer (principal); L97.524 Non-pressure chronic ulcer of other part of left foot with necrosis of bone; M86.672 Other chronic osteomyelitis, left ankle and foot; E11.69 Type 2 diabetes mellitus with other specified complication; T87.89 Other complications of amputation stump; I10 Essential (primary) hypertension; L84 Corns and callosities; Z79.82 Long term (current) use of aspirin; Z90.710 Acquired absence of both cervix and uterus; Y83.5 Amputation of limb(s) as the cause of abnormal reaction of the patient, or of later complication, without mention of misadventure at the time of the procedure | CPT/HCPCS: 82962; G0277; 99183 ==

== ENCOUNTER 2021-05-03 09:28 | Outpatient (CLI) | payer BC ==
[2021-05-03] MEDS ORDERED: LIDOCAINE (4%) 40 MG/ML TOPICAL SOLN 50 ML BOTTLE TP ONE (09:38)
== END 2021-05-03 09:29 | disposition home or self-care (01) ==
LOC: WOUND 09:28
PROVIDERS: ATTEND Surgery
DX: E11.621 Type 2 diabetes mellitus with foot ulcer (principal); L97.524 Non-pressure chronic ulcer of other part of left foot with necrosis of bone; M86.672 Other chronic osteomyelitis, left ankle and foot; E11.69 Type 2 diabetes mellitus with other specified complication; T87.89 Other complications of amputation stump; I10 Essential (primary) hypertension; L84 Corns and callosities; Z79.82 Long term (current) use of aspirin; Z90.710 Acquired absence of both cervix and uterus; Y83.5 Amputation of limb(s) as the cause of abnormal reaction of the patient, or of later complication, without mention of misadventure at the time of the procedure
CPT/HCPCS: 11042; 82962; G0277; 99183

== ENCOUNTER 2021-05-10 09:29 | Outpatient (CLI) | payer BC ==
[2021-05-10] MEDS ORDERED: LIDOCAINE (4%) 40 MG/ML TOPICAL SOLN 50 ML BOTTLE TP SCH (10:00)
== END 2021-05-10 09:30 | disposition home or self-care (01) ==
LOC: WOUND 09:29
PROVIDERS: ATTEND Surgery
DX: T87.89 Other complications of amputation stump (principal); E11.621 Type 2 diabetes mellitus with foot ulcer; L97.524 Non-pressure chronic ulcer of other part of left foot with necrosis of bone; M86.672 Other chronic osteomyelitis, left ankle and foot; E11.69 Type 2 diabetes mellitus with other specified complication; I10 Essential (primary) hypertension; L84 Corns and callosities; Z79.82 Long term (current) use of aspirin; Z90.710 Acquired absence of both cervix and uterus; Y83.5 Amputation of limb(s) as the cause of abnormal reaction of the patient, or of later complication, without mention of misadventure at the time of the procedure

== ENCOUNTER → 2021-05-12 | Outpatient (CLI) | payer BC | END | disposition home or self-care (01) | LOC: WOUND 10:00 | PROVIDERS: ATTEND Internal Medicine | DX: E11.621 Type 2 diabetes mellitus with foot ulcer (principal); L97.524 Non-pressure chronic ulcer of other part of left foot with necrosis of bone; T87.89 Other complications of amputation stump; E11.69 Type 2 diabetes mellitus with other specified complication; M86.672 Other chronic osteomyelitis, left ankle and foot; I10 Essential (primary) hypertension; L84 Corns and callosities; Z79.82 Long term (current) use of aspirin; Z90.710 Acquired absence of both cervix and uterus; Y83.5 Amputation of limb(s) as the cause of abnormal reaction of the patient, or of later complication, without mention of misadventure at the time of the procedure | CPT/HCPCS: 82962; G0277; 99183 ==

== ENCOUNTER 2021-05-15 10:08 | Outpatient (CLI) | payer BC | END 2021-05-15 10:09 | disposition home or self-care (01) | LOC: WOUND 10:08 | PROVIDERS: ATTEND Surgery | DX: E11.621 Type 2 diabetes mellitus with foot ulcer (principal); L97.524 Non-pressure chronic ulcer of other part of left foot with necrosis of bone; T87.89 Other complications of amputation stump; E11.69 Type 2 diabetes mellitus with other specified complication; M86.672 Other chronic osteomyelitis, left ankle and foot; I10 Essential (primary) hypertension; L84 Corns and callosities; Z79.82 Long term (current) use of aspirin; Z90.710 Acquired absence of both cervix and uterus; Y83.5 Amputation of limb(s) as the cause of abnormal reaction of the patient, or of later complication, without mention of misadventure at the time of the procedure | CPT/HCPCS: 99183; G0277 ==

== ENCOUNTER 2021-05-17 10:33 | Outpatient (CLI) | payer BC ==
[2021-05-17] MEDS ORDERED: LIDOCAINE (4%) 40 MG/ML TOPICAL SOLN 50 ML BOTTLE TP SCH (13:00)
== END 2021-05-17 10:34 | disposition home or self-care (01) ==
LOC: WOUND 10:33
PROVIDERS: ATTEND Surgery
DX: E11.621 Type 2 diabetes mellitus with foot ulcer (principal); L97.524 Non-pressure chronic ulcer of other part of left foot with necrosis of bone; T87.89 Other complications of amputation stump; E11.69 Type 2 diabetes mellitus with other specified complication; M86.672 Other chronic osteomyelitis, left ankle and foot; I10 Essential (primary) hypertension; L84 Corns and callosities; Z79.82 Long term (current) use of aspirin; Z90.710 Acquired absence of both cervix and uterus; Y83.5 Amputation of limb(s) as the cause of abnormal reaction of the patient, or of later complication, without mention of misadventure at the time of the procedure
CPT/HCPCS: 11042; 82962; G0277; 99183

== ENCOUNTER 2021-05-19 10:00 | Outpatient (CLI) | payer BC | END 2021-05-19 10:01 | disposition home or self-care (01) | LOC: WOUND 10:00 | PROVIDERS: ATTEND Internal Medicine | DX: E11.621 Type 2 diabetes mellitus with foot ulcer (principal); L97.524 Non-pressure chronic ulcer of other part of left foot with necrosis of bone; T87.89 Other complications of amputation stump; E11.69 Type 2 diabetes mellitus with other specified complication; M86.672 Other chronic osteomyelitis, left ankle and foot; I10 Essential (primary) hypertension; L84 Corns and callosities; Z79.82 Long term (current) use of aspirin; Z90.710 Acquired absence of both cervix and uterus; Y83.5 Amputation of limb(s) as the cause of abnormal reaction of the patient, or of later complication, without mention of misadventure at the time of the procedure | CPT/HCPCS: 82962; G0277; 99183 ==

== ENCOUNTER 2021-05-22 10:07 | Outpatient (CLI) | payer BC | END 2021-05-22 10:08 | disposition home or self-care (01) | LOC: WOUND 10:07 | PROVIDERS: ATTEND Surgery | DX: E11.621 Type 2 diabetes mellitus with foot ulcer (principal); L97.524 Non-pressure chronic ulcer of other part of left foot with necrosis of bone; T87.89 Other complications of amputation stump; E11.69 Type 2 diabetes mellitus with other specified complication; M86.672 Other chronic osteomyelitis, left ankle and foot; I10 Essential (primary) hypertension; L84 Corns and callosities; Z79.82 Long term (current) use of aspirin; Z90.710 Acquired absence of both cervix and uterus; Y83.5 Amputation of limb(s) as the cause of abnormal reaction of the patient, or of later complication, without mention of misadventure at the time of the procedure | CPT/HCPCS: 82962; G0277; 99183 ==

== ENCOUNTER 2021-05-23 10:06 | Outpatient (CLI) | payer BC | END 2021-05-23 10:07 | disposition home or self-care (01) | LOC: WOUND 10:06 | PROVIDERS: ATTEND Internal Medicine | DX: E11.621 Type 2 diabetes mellitus with foot ulcer (principal); L97.524 Non-pressure chronic ulcer of other part of left foot with necrosis of bone; T87.89 Other complications of amputation stump; E11.69 Type 2 diabetes mellitus with other specified complication; M86.672 Other chronic osteomyelitis, left ankle and foot; I10 Essential (primary) hypertension; L84 Corns and callosities; Z79.82 Long term (current) use of aspirin; Z90.710 Acquired absence of both cervix and uterus; Y83.5 Amputation of limb(s) as the cause of abnormal reaction of the patient, or of later complication, without mention of misadventure at the time of the procedure | CPT/HCPCS: 82962; G0277; 99183 ==

== ENCOUNTER 2021-05-24 09:02 | Outpatient (CLI) | payer BC ==
[2021-05-24] MEDS ORDERED: LIDOCAINE (4%) 40 MG/ML TOPICAL SOLN 50 ML BOTTLE TP ONE (09:19)
== END 2021-05-24 09:03 | disposition home or self-care (01) ==
LOC: WOUND 09:02
PROVIDERS: ATTEND Surgery
DX: E11.621 Type 2 diabetes mellitus with foot ulcer (principal); L97.524 Non-pressure chronic ulcer of other part of left foot with necrosis of bone; T87.89 Other complications of amputation stump; E11.69 Type 2 diabetes mellitus with other specified complication; M86.672 Other chronic osteomyelitis, left ankle and foot; I10 Essential (primary) hypertension; L84 Corns and callosities; Z79.82 Long term (current) use of aspirin; Z90.710 Acquired absence of both cervix and uterus; Y83.5 Amputation of limb(s) as the cause of abnormal reaction of the patient, or of later complication, without mention of misadventure at the time of the procedure
CPT/HCPCS: 11042; 82962; G0277; 99183

== ENCOUNTER 2021-06-05 10:04 | Outpatient (CLI) | payer BC | END 2021-06-05 10:05 | disposition home or self-care (01) | LOC: WOUND 10:04 | PROVIDERS: ATTEND Surgery | DX: E11.621 Type 2 diabetes mellitus with foot ulcer (principal); L97.524 Non-pressure chronic ulcer of other part of left foot with necrosis of bone; T87.89 Other complications of amputation stump; E11.69 Type 2 diabetes mellitus with other specified complication; M86.672 Other chronic osteomyelitis, left ankle and foot; I10 Essential (primary) hypertension; L84 Corns and callosities; Z79.82 Long term (current) use of aspirin; Z90.710 Acquired absence of both cervix and uterus; Y83.5 Amputation of limb(s) as the cause of abnormal reaction of the patient, or of later complication, without mention of misadventure at the time of the procedure | CPT/HCPCS: 82962; G0277; 99183 ==

== ENCOUNTER 2021-06-06 10:20 | Outpatient (CLI) | payer BC | END 2021-06-06 10:21 | disposition home or self-care (01) | LOC: WOUND 10:20 | PROVIDERS: ATTEND Internal Medicine | DX: E11.621 Type 2 diabetes mellitus with foot ulcer (principal); L97.524 Non-pressure chronic ulcer of other part of left foot with necrosis of bone; T87.89 Other complications of amputation stump; E11.69 Type 2 diabetes mellitus with other specified complication; M86.672 Other chronic osteomyelitis, left ankle and foot; I10 Essential (primary) hypertension; L84 Corns and callosities; Z79.82 Long term (current) use of aspirin; Z90.710 Acquired absence of both cervix and uterus; Y83.5 Amputation of limb(s) as the cause of abnormal reaction of the patient, or of later complication, without mention of misadventure at the time of the procedure | CPT/HCPCS: 82962; G0277; 99183 ==

== ENCOUNTER 2021-06-07 09:19 | Outpatient (CLI) | payer BC ==
[2021-06-07] MEDS ORDERED: LIDOCAINE (4%) 40 MG/ML TOPICAL SOLN 50 ML BOTTLE TP ONE (13:24)
== END 2021-06-07 09:20 | disposition home or self-care (01) ==
LOC: WOUND 09:19
PROVIDERS: ATTEND Surgery
DX: E11.621 Type 2 diabetes mellitus with foot ulcer (principal); L97.524 Non-pressure chronic ulcer of other part of left foot with necrosis of bone; T87.89 Other complications of amputation stump; E11.69 Type 2 diabetes mellitus with other specified complication; M86.672 Other chronic osteomyelitis, left ankle and foot; I10 Essential (primary) hypertension; L84 Corns and callosities; Z79.82 Long term (current) use of aspirin; Z90.710 Acquired absence of both cervix and uterus; Y83.5 Amputation of limb(s) as the cause of abnormal reaction of the patient, or of later complication, without mention of misadventure at the time of the procedure
CPT/HCPCS: 11042; 82962; G0277; 99183

== ENCOUNTER 2021-06-08 09:44 | Outpatient (CLI) | payer BC | END 2021-06-08 09:45 | disposition home or self-care (01) | LOC: WOUND 09:44 | PROVIDERS: ATTEND Internal Medicine | DX: E11.621 Type 2 diabetes mellitus with foot ulcer (principal); L97.524 Non-pressure chronic ulcer of other part of left foot with necrosis of bone; T87.89 Other complications of amputation stump; E11.69 Type 2 diabetes mellitus with other specified complication; M86.672 Other chronic osteomyelitis, left ankle and foot; I10 Essential (primary) hypertension; L84 Corns and callosities; Z79.82 Long term (current) use of aspirin; Z90.710 Acquired absence of both cervix and uterus; Y83.5 Amputation of limb(s) as the cause of abnormal reaction of the patient, or of later complication, without mention of misadventure at the time of the procedure | CPT/HCPCS: 82962; G0277; 99183 ==

== ENCOUNTER 2021-06-12 09:22 | Outpatient (CLI) | payer BC | END 2021-06-12 09:23 | disposition home or self-care (01) | LOC: WOUND 09:22 | PROVIDERS: ATTEND Surgery | DX: E11.621 Type 2 diabetes mellitus with foot ulcer (principal); L97.524 Non-pressure chronic ulcer of other part of left foot with necrosis of bone; T87.89 Other complications of amputation stump; E11.69 Type 2 diabetes mellitus with other specified complication; M86.672 Other chronic osteomyelitis, left ankle and foot; I10 Essential (primary) hypertension; L84 Corns and callosities; Z79.82 Long term (current) use of aspirin; Z90.710 Acquired absence of both cervix and uterus; Y83.5 Amputation of limb(s) as the cause of abnormal reaction of the patient, or of later complication, without mention of misadventure at the time of the procedure | CPT/HCPCS: 82962; G0277; 99183 ==

== ENCOUNTER 2021-06-13 08:22 | Outpatient (CLI) | payer BC | END 2021-06-13 08:23 | disposition home or self-care (01) | LOC: WOUND 08:22 | PROVIDERS: ATTEND Internal Medicine | DX: E11.621 Type 2 diabetes mellitus with foot ulcer (principal); L97.524 Non-pressure chronic ulcer of other part of left foot with necrosis of bone; T87.89 Other complications of amputation stump; E11.69 Type 2 diabetes mellitus with other specified complication; M86.672 Other chronic osteomyelitis, left ankle and foot; I10 Essential (primary) hypertension; L84 Corns and callosities; Z79.82 Long term (current) use of aspirin; Z90.710 Acquired absence of both cervix and uterus; Y83.5 Amputation of limb(s) as the cause of abnormal reaction of the patient, or of later complication, without mention of misadventure at the time of the procedure | CPT/HCPCS: 82962; G0277; 99183 ==

== ENCOUNTER 2021-06-15 09:05 | Outpatient (CLI) | payer BC | END 2021-06-15 09:06 | disposition home or self-care (01) | LOC: WOUND 09:05 | PROVIDERS: ATTEND Internal Medicine | DX: E11.621 Type 2 diabetes mellitus with foot ulcer (principal); L97.524 Non-pressure chronic ulcer of other part of left foot with necrosis of bone; T87.89 Other complications of amputation stump; E11.69 Type 2 diabetes mellitus with other specified complication; M86.672 Other chronic osteomyelitis, left ankle and foot; I10 Essential (primary) hypertension; L84 Corns and callosities; Z79.82 Long term (current) use of aspirin; Z90.710 Acquired absence of both cervix and uterus; Y83.5 Amputation of limb(s) as the cause of abnormal reaction of the patient, or of later complication, without mention of misadventure at the time of the procedure | CPT/HCPCS: 82962; G0277; 99183 ==

== ENCOUNTER 2021-06-28 09:11 | Outpatient (CLI) | payer BC ==
[2021-06-28] MEDS ORDERED: LIDOCAINE (4%) 40 MG/ML TOPICAL SOLN 50 ML BOTTLE TP SCH (10:00)
== END 2021-06-28 09:12 | disposition home or self-care (01) ==
LOC: WOUND 09:11
PROVIDERS: ATTEND Surgery
DX: E11.621 Type 2 diabetes mellitus with foot ulcer (principal); L97.524 Non-pressure chronic ulcer of other part of left foot with necrosis of bone; T87.89 Other complications of amputation stump; E11.69 Type 2 diabetes mellitus with other specified complication; M86.672 Other chronic osteomyelitis, left ankle and foot; L84 Corns and callosities; I10 Essential (primary) hypertension; Z79.82 Long term (current) use of aspirin; Z90.710 Acquired absence of both cervix and uterus; Y83.5 Amputation of limb(s) as the cause of abnormal reaction of the patient, or of later complication, without mention of misadventure at the time of the procedure
CPT/HCPCS: 11042; 82962; G0277; 99183

== ENCOUNTER 2021-06-29 08:31 | Outpatient (CLI) | payer BC | END 2021-06-29 08:32 | disposition home or self-care (01) | LOC: WOUND 08:31 | PROVIDERS: ATTEND Internal Medicine | DX: E11.621 Type 2 diabetes mellitus with foot ulcer (principal); L97.524 Non-pressure chronic ulcer of other part of left foot with necrosis of bone; T87.89 Other complications of amputation stump; E11.69 Type 2 diabetes mellitus with other specified complication; M86.672 Other chronic osteomyelitis, left ankle and foot; L84 Corns and callosities; I10 Essential (primary) hypertension; Z79.82 Long term (current) use of aspirin; Z90.710 Acquired absence of both cervix and uterus; Y83.5 Amputation of limb(s) as the cause of abnormal reaction of the patient, or of later complication, without mention of misadventure at the time of the procedure | CPT/HCPCS: 82962; G0277; 99183 ==

== ENCOUNTER 2021-06-30 09:04 | Outpatient (CLI) | payer BC | END 2021-06-30 09:05 | disposition home or self-care (01) | LOC: WOUND 09:04 | PROVIDERS: ATTEND Internal Medicine | DX: E11.621 Type 2 diabetes mellitus with foot ulcer (principal); L97.524 Non-pressure chronic ulcer of other part of left foot with necrosis of bone; T87.89 Other complications of amputation stump; E11.69 Type 2 diabetes mellitus with other specified complication; M86.672 Other chronic osteomyelitis, left ankle and foot; L84 Corns and callosities; I10 Essential (primary) hypertension; Z79.82 Long term (current) use of aspirin; Z90.710 Acquired absence of both cervix and uterus; Y83.5 Amputation of limb(s) as the cause of abnormal reaction of the patient, or of later complication, without mention of misadventure at the time of the procedure | CPT/HCPCS: 82962; G0277; 99183 ==

== ENCOUNTER 2021-07-03 08:57 | Outpatient (CLI) | payer BC | END 2021-07-03 08:58 | disposition home or self-care (01) | LOC: WOUND 08:57 | PROVIDERS: ATTEND Surgery | DX: E11.621 Type 2 diabetes mellitus with foot ulcer (principal); L97.524 Non-pressure chronic ulcer of other part of left foot with necrosis of bone; T87.89 Other complications of amputation stump; E11.69 Type 2 diabetes mellitus with other specified complication; M86.672 Other chronic osteomyelitis, left ankle and foot; L84 Corns and callosities; I10 Essential (primary) hypertension; Z79.82 Long term (current) use of aspirin; Z90.710 Acquired absence of both cervix and uterus; Y83.5 Amputation of limb(s) as the cause of abnormal reaction of the patient, or of later complication, without mention of misadventure at the time of the procedure | CPT/HCPCS: 82962; G0277; 99183 ==

== ENCOUNTER 2021-07-04 08:57 | Outpatient (CLI) | payer BC | END 2021-07-04 08:58 | disposition home or self-care (01) | LOC: WOUND 08:57 | PROVIDERS: ATTEND Internal Medicine | DX: E11.621 Type 2 diabetes mellitus with foot ulcer (principal); L97.524 Non-pressure chronic ulcer of other part of left foot with necrosis of bone; T87.89 Other complications of amputation stump; E11.69 Type 2 diabetes mellitus with other specified complication; M86.672 Other chronic osteomyelitis, left ankle and foot; L84 Corns and callosities; I10 Essential (primary) hypertension; Z79.82 Long term (current) use of aspirin; Z90.710 Acquired absence of both cervix and uterus; Y83.5 Amputation of limb(s) as the cause of abnormal reaction of the patient, or of later complication, without mention of misadventure at the time of the procedure | CPT/HCPCS: 82962; G0277; 99183 ==

== ENCOUNTER 2021-07-05 09:08 | Outpatient (CLI) | payer BC ==
[2021-07-05] MEDS ORDERED: LIDOCAINE (4%) 40 MG/ML TOPICAL SOLN 50 ML BOTTLE TP ONE (09:13)
== END 2021-07-05 09:09 | disposition home or self-care (01) ==
LOC: WOUND 09:08
PROVIDERS: ATTEND Surgery
DX: E11.621 Type 2 diabetes mellitus with foot ulcer (principal); L97.524 Non-pressure chronic ulcer of other part of left foot with necrosis of bone; T87.89 Other complications of amputation stump; E11.69 Type 2 diabetes mellitus with other specified complication; M86.672 Other chronic osteomyelitis, left ankle and foot; L84 Corns and callosities; I10 Essential (primary) hypertension; Z79.82 Long term (current) use of aspirin; Z90.710 Acquired absence of both cervix and uterus; Y83.5 Amputation of limb(s) as the cause of abnormal reaction of the patient, or of later complication, without mention of misadventure at the time of the procedure
CPT/HCPCS: 11042; 82962; G0277; 99183

== ENCOUNTER 2021-07-07 09:30 | Outpatient (CLI) | payer BC | END 2021-07-07 09:31 | disposition home or self-care (01) | LOC: WOUND 09:30 | PROVIDERS: ATTEND Internal Medicine | DX: E11.621 Type 2 diabetes mellitus with foot ulcer (principal); L97.524 Non-pressure chronic ulcer of other part of left foot with necrosis of bone; T87.89 Other complications of amputation stump; M86.672 Other chronic osteomyelitis, left ankle and foot; E11.69 Type 2 diabetes mellitus with other specified complication; L84 Corns and callosities; I10 Essential (primary) hypertension; Z79.82 Long term (current) use of aspirin; Z90.710 Acquired absence of both cervix and uterus; Y83.5 Amputation of limb(s) as the cause of abnormal reaction of the patient, or of later complication, without mention of misadventure at the time of the procedure | CPT/HCPCS: 82962; G0277; 99183 ==

== ENCOUNTER 2021-07-10 09:14 | Outpatient (CLI) | payer BC | END 2021-07-10 09:15 | disposition home or self-care (01) | LOC: WOUND 09:14 | PROVIDERS: ATTEND Surgery | DX: E11.621 Type 2 diabetes mellitus with foot ulcer (principal); L97.524 Non-pressure chronic ulcer of other part of left foot with necrosis of bone; T87.89 Other complications of amputation stump; E11.69 Type 2 diabetes mellitus with other specified complication; M86.672 Other chronic osteomyelitis, left ankle and foot; L84 Corns and callosities; I10 Essential (primary) hypertension; Z79.82 Long term (current) use of aspirin; Z90.710 Acquired absence of both cervix and uterus; Y83.5 Amputation of limb(s) as the cause of abnormal reaction of the patient, or of later complication, without mention of misadventure at the time of the procedure | CPT/HCPCS: 82962; G0277; 99183 ==

== ENCOUNTER 2021-07-11 09:30 | Outpatient (CLI) | payer BC | END 2021-07-11 09:31 | disposition home or self-care (01) | LOC: WOUND 09:30 | PROVIDERS: ATTEND Internal Medicine | DX: E11.621 Type 2 diabetes mellitus with foot ulcer (principal); L97.524 Non-pressure chronic ulcer of other part of left foot with necrosis of bone; T87.89 Other complications of amputation stump; E11.69 Type 2 diabetes mellitus with other specified complication; M86.672 Other chronic osteomyelitis, left ankle and foot; L84 Corns and callosities; I10 Essential (primary) hypertension; Z79.82 Long term (current) use of aspirin; Z90.710 Acquired absence of both cervix and uterus; Y83.5 Amputation of limb(s) as the cause of abnormal reaction of the patient, or of later complication, without mention of misadventure at the time of the procedure | CPT/HCPCS: 99183; G0277 ==

== ENCOUNTER 2021-07-12 09:08 | Outpatient (CLI) | payer BC ==
[2021-07-12] MEDS ORDERED: LIDOCAINE (4%) 40 MG/ML TOPICAL SOLN 50 ML BOTTLE TP ONE (09:29)
== END 2021-07-12 09:09 | disposition home or self-care (01) ==
LOC: WOUND 09:08
PROVIDERS: ATTEND Surgery
DX: E11.621 Type 2 diabetes mellitus with foot ulcer (principal); L97.524 Non-pressure chronic ulcer of other part of left foot with necrosis of bone; E11.69 Type 2 diabetes mellitus with other specified complication; M86.672 Other chronic osteomyelitis, left ankle and foot; L84 Corns and callosities; I10 Essential (primary) hypertension; Z79.82 Long term (current) use of aspirin; Z90.710 Acquired absence of both cervix and uterus; Z89.411 Acquired absence of right great toe

== ENCOUNTER 2021-07-19 09:04 | Outpatient (CLI) | payer BC | END 2021-07-19 09:05 | disposition home or self-care (01) | LOC: WOUND 09:04 | PROVIDERS: ATTEND Surgery | DX: E11.621 Type 2 diabetes mellitus with foot ulcer (principal); L97.524 Non-pressure chronic ulcer of other part of left foot with necrosis of bone; M86.672 Other chronic osteomyelitis, left ankle and foot; E11.69 Type 2 diabetes mellitus with other specified complication; T87.89 Other complications of amputation stump; L84 Corns and callosities; I10 Essential (primary) hypertension; Z79.82 Long term (current) use of aspirin; Z90.710 Acquired absence of both cervix and uterus; Y83.5 Amputation of limb(s) as the cause of abnormal reaction of the patient, or of later complication, without mention of misadventure at the time of the procedure | CPT/HCPCS: 82962; G0277; 99183 ==

== ENCOUNTER 2021-07-25 08:47 | Outpatient (CLI) | payer BC | END 2021-07-25 08:48 | disposition home or self-care (01) | LOC: WOUND 08:47 | PROVIDERS: ATTEND Internal Medicine | DX: E11.621 Type 2 diabetes mellitus with foot ulcer (principal); L97.524 Non-pressure chronic ulcer of other part of left foot with necrosis of bone; M86.672 Other chronic osteomyelitis, left ankle and foot; E11.69 Type 2 diabetes mellitus with other specified complication; T87.89 Other complications of amputation stump; L84 Corns and callosities; I10 Essential (primary) hypertension; Z79.82 Long term (current) use of aspirin; Z90.710 Acquired absence of both cervix and uterus; Y83.5 Amputation of limb(s) as the cause of abnormal reaction of the patient, or of later complication, without mention of misadventure at the time of the procedure | CPT/HCPCS: 82962; G0277; 99183 ==

== ENCOUNTER 2021-07-31 09:00 | Outpatient (CLI) | payer BC | END 2021-07-31 09:01 | disposition home or self-care (01) | LOC: WOUND 09:00 | PROVIDERS: ATTEND Surgery | DX: E11.621 Type 2 diabetes mellitus with foot ulcer (principal); L97.524 Non-pressure chronic ulcer of other part of left foot with necrosis of bone; T87.89 Other complications of amputation stump; M86.672 Other chronic osteomyelitis, left ankle and foot; E11.69 Type 2 diabetes mellitus with other specified complication; L84 Corns and callosities; I10 Essential (primary) hypertension; Z79.82 Long term (current) use of aspirin; Z90.710 Acquired absence of both cervix and uterus; Y83.5 Amputation of limb(s) as the cause of abnormal reaction of the patient, or of later complication, without mention of misadventure at the time of the procedure | CPT/HCPCS: 82962; G0277; 99183 ==

== ENCOUNTER 2021-08-01 08:42 | Outpatient (CLI) | payer BC | END 2021-08-01 08:43 | disposition home or self-care (01) | LOC: WOUND 08:42 | PROVIDERS: ATTEND Internal Medicine | DX: E11.621 Type 2 diabetes mellitus with foot ulcer (principal); L97.524 Non-pressure chronic ulcer of other part of left foot with necrosis of bone; M86.672 Other chronic osteomyelitis, left ankle and foot; E11.69 Type 2 diabetes mellitus with other specified complication; T87.89 Other complications of amputation stump; L84 Corns and callosities; I10 Essential (primary) hypertension; Z79.82 Long term (current) use of aspirin; Z90.710 Acquired absence of both cervix and uterus; Y83.5 Amputation of limb(s) as the cause of abnormal reaction of the patient, or of later complication, without mention of misadventure at the time of the procedure | CPT/HCPCS: 82962; G0277; 99183 ==

== ENCOUNTER 2021-08-02 11:05 | Outpatient (CLI) | payer BC ==
[2021-08-02] MEDS ORDERED: LIDOCAINE (4%) 40 MG/ML TOPICAL SOLN 50 ML BOTTLE TP ONE (11:40)
== END 2021-08-02 11:06 | disposition home or self-care (01) ==
LOC: WOUND 11:05
PROVIDERS: ATTEND Surgery
DX: E11.621 Type 2 diabetes mellitus with foot ulcer (principal); L97.524 Non-pressure chronic ulcer of other part of left foot with necrosis of bone; T87.89 Other complications of amputation stump; M86.672 Other chronic osteomyelitis, left ankle and foot; E11.69 Type 2 diabetes mellitus with other specified complication; L84 Corns and callosities; I10 Essential (primary) hypertension; Z79.82 Long term (current) use of aspirin; Z90.710 Acquired absence of both cervix and uterus; Y83.5 Amputation of limb(s) as the cause of abnormal reaction of the patient, or of later complication, without mention of misadventure at the time of the procedure
CPT/HCPCS: 11042; 82962; G0277; 99183

== ENCOUNTER 2021-08-03 12:27 | Outpatient (CLI) | payer BC | END 2021-08-03 12:28 | disposition home or self-care (01) | LOC: WOUND 12:27 | PROVIDERS: ATTEND Internal Medicine | DX: E11.621 Type 2 diabetes mellitus with foot ulcer (principal); L97.524 Non-pressure chronic ulcer of other part of left foot with necrosis of bone; T87.89 Other complications of amputation stump; M86.672 Other chronic osteomyelitis, left ankle and foot; E11.69 Type 2 diabetes mellitus with other specified complication; L84 Corns and callosities; I10 Essential (primary) hypertension; Z79.82 Long term (current) use of aspirin; Z90.710 Acquired absence of both cervix and uterus; Y83.5 Amputation of limb(s) as the cause of abnormal reaction of the patient, or of later complication, without mention of misadventure at the time of the procedure | CPT/HCPCS: 82962; G0277; 99183 ==

== ENCOUNTER 2021-08-09 09:21 | Outpatient (CLI) | payer BC ==
[2021-08-09] MEDS ORDERED: LIDOCAINE (4%) 40 MG/ML TOPICAL SOLN 50 ML BOTTLE TP ONE (10:41)
== END 2021-08-09 09:22 | disposition home or self-care (01) ==
LOC: WOUND 09:21
PROVIDERS: ATTEND Surgery
DX: T87.89 Other complications of amputation stump (principal); E11.621 Type 2 diabetes mellitus with foot ulcer; L97.524 Non-pressure chronic ulcer of other part of left foot with necrosis of bone; E11.69 Type 2 diabetes mellitus with other specified complication; M86.672 Other chronic osteomyelitis, left ankle and foot; L84 Corns and callosities; I10 Essential (primary) hypertension; Z79.82 Long term (current) use of aspirin; Z90.710 Acquired absence of both cervix and uterus; Y83.5 Amputation of limb(s) as the cause of abnormal reaction of the patient, or of later complication, without mention of misadventure at the time of the procedure

== ENCOUNTER 2021-08-11 09:22 | Outpatient (CLI) | payer BC ==
[2021-08-11 10:18] LABS: Chol/HDL Ratio 3.56 %
[2021-08-11 10:28] LABS: Bacteria,Urine 1+ /HPF (Negative); Bilirubin,Urine NEG (Negative); Blood,Urine NEG (Negative); Color,Urine Yellow (Yellow); Mucus,Urine FEW /HPF; Urobilinogen,Urine < 2.0 mg/dL (<2.0)
== END 2021-08-11 09:23 | disposition home or self-care (01) ==
LOC: LAB 09:22
PROVIDERS: ATTEND Internal Medicine
DX: E11.65 Type 2 diabetes mellitus with hyperglycemia (principal); E78.5 Hyperlipidemia, unspecified
CPT/HCPCS: 36415; 80061; 81001; 83036

== ENCOUNTER 2021-08-23 08:25 | Outpatient (CLI) | payer BC ==
[2021-08-23] MEDS ORDERED: LIDOCAINE (4%) 40 MG/ML TOPICAL SOLN 50 ML BOTTLE TP ONE (08:34)
== END 2021-08-23 08:26 | disposition home or self-care (01) ==
LOC: WOUND 08:25
PROVIDERS: ATTEND Surgery
DX: T87.89 Other complications of amputation stump (principal); E11.621 Type 2 diabetes mellitus with foot ulcer; L97.524 Non-pressure chronic ulcer of other part of left foot with necrosis of bone; E11.69 Type 2 diabetes mellitus with other specified complication; M86.672 Other chronic osteomyelitis, left ankle and foot; L84 Corns and callosities; I10 Essential (primary) hypertension; Z79.82 Long term (current) use of aspirin; Z90.710 Acquired absence of both cervix and uterus; Y83.5 Amputation of limb(s) as the cause of abnormal reaction of the patient, or of later complication, without mention of misadventure at the time of the procedure

== ENCOUNTER 2021-08-30 08:14 | Outpatient (CLI) | payer BC ==
[2021-08-30] MEDS ORDERED: LIDOCAINE (4%) 40 MG/ML TOPICAL SOLN 50 ML BOTTLE TP ONE (08:37)
== END 2021-08-30 08:15 | disposition home or self-care (01) ==
LOC: WOUND 08:14
PROVIDERS: ATTEND Surgery
DX: E11.621 Type 2 diabetes mellitus with foot ulcer (principal); L97.524 Non-pressure chronic ulcer of other part of left foot with necrosis of bone; L84 Corns and callosities; I10 Essential (primary) hypertension; E11.69 Type 2 diabetes mellitus with other specified complication; M86.672 Other chronic osteomyelitis, left ankle and foot; Z79.82 Long term (current) use of aspirin; Z79.899 Other long term (current) drug therapy; Z90.710 Acquired absence of both cervix and uterus

== ENCOUNTER 2021-09-20 08:07 | Outpatient (CLI) | payer BC ==
[2021-09-20] MEDS ORDERED: LIDOCAINE (4%) 40 MG/ML TOPICAL SOLN 50 ML BOTTLE TP ONE (08:25)
== END 2021-09-20 08:08 | disposition home or self-care (01) ==
LOC: WOUND 08:07
PROVIDERS: ATTEND Surgery
DX: E11.621 Type 2 diabetes mellitus with foot ulcer (principal); L97.524 Non-pressure chronic ulcer of other part of left foot with necrosis of bone; L84 Corns and callosities; I10 Essential (primary) hypertension; E11.69 Type 2 diabetes mellitus with other specified complication; M86.672 Other chronic osteomyelitis, left ankle and foot; Z79.82 Long term (current) use of aspirin; Z79.899 Other long term (current) drug therapy; Z90.710 Acquired absence of both cervix and uterus

== ENCOUNTER 2021-11-24 09:20 | Outpatient (CLI) | payer BC ==
[2021-11-24 10:20] LABS: Chol/HDL Ratio 3.37 %
== END 2021-11-24 09:21 | disposition home or self-care (01) ==
LOC: LAB 09:20
PROVIDERS: ATTEND Internal Medicine
DX: E11.65 Type 2 diabetes mellitus with hyperglycemia (principal); E78.5 Hyperlipidemia, unspecified
CPT/HCPCS: 36415; 80061; 83036

== ENCOUNTER 2021-12-21 07:09 | Outpatient (CLI) | payer BC ==
--- NOTE | 2021-12-21 07:59 | Cat Scan Report ---
CT HEAD WITHOUT CONTRAST INDICATION / CLINICAL INFORMATION: dizzy. TECHNIQUE: Axial imaging performed from the skull apex through the skull base without the use of cont rast. Sagittal and coronal reformatted images. All CT scans at this location are performed using CT dose reduction for ALARA by means of automated exposure control. COMPARISON: None available. FINDINGS: CEREBRAL PARENCHYMA: No significant abnormality. No acute territorial infarct. HEMORRHAGE: None. EXTRA-AXIAL SPACES: Normal in size and morphology for the patient's age. VENTRICULAR SYSTEM: Normal in size and morphology for the patient's age. MIDLINE SHIFT OR HERNIATION: None. CEREBELLUM / BRAINSTEM: No significant abnormality. CALVARIUM: No significant abnormality. ORBITS: Normal as visualized. PARANASAL SINUSES / MASTOID AIR CELLS: There is moderate mucosal thickening in the right maxillary si nus. The remaining sinuses and mastoid air cells are clear. SOFT TISSUES of HEAD: No significant abnormality. ADDITIONAL FINDINGS: None. IMPRESSION: Unremarkable CT brain. Chronic right maxillary sinus disease. Signer Name: Patric Tobias Jr, MD Signed: 12/21/2021 7:54 AM Workstation Name: [id number]
== END 2021-12-21 07:10 | disposition home or self-care (01) ==
LOC: CT 07:09
PROVIDERS: ATTEND Internal Medicine
DX: J32.0 Chronic maxillary sinusitis (principal)
CPT/HCPCS: 70450

== ENCOUNTER 2022-02-14 09:43 | Outpatient (CLI) | payer BC ==
[2022-02-14] MEDS ORDERED: LIDOCAINE (4%) 40 MG/ML TOPICAL SOLN 50 ML BOTTLE TP ONE (12:00)
== END 2022-02-14 09:44 | disposition home or self-care (01) ==
LOC: WOUND 09:43
PROVIDERS: ATTEND Surgery
DX: E11.621 Type 2 diabetes mellitus with foot ulcer (principal); L97.522 Non-pressure chronic ulcer of other part of left foot with fat layer exposed; L84 Corns and callosities; I10 Essential (primary) hypertension; Z90.710 Acquired absence of both cervix and uterus; Z79.82 Long term (current) use of aspirin; Z79.899 Other long term (current) drug therapy

== ENCOUNTER 2022-02-19 09:48 | Outpatient (CLI) | payer BC ==
[2022-02-19 10:48] LABS: BUN/Creatinine Ratio 18; Blood Urea Nitrogen 18 mg/dL (7-17); Calcium 9.1 mg/dL (8.4-10.2); Hemolysis Index 11
== END 2022-02-19 09:49 | disposition home or self-care (01) ==
LOC: LAB 09:48
PROVIDERS: ATTEND Surgery
DX: E11.621 Type 2 diabetes mellitus with foot ulcer (principal)
CPT/HCPCS: 36415; 80048

== ENCOUNTER 2022-02-21 06:43 | Outpatient (CLI) | payer BC ==
--- NOTE | 2022-02-21 11:38 | Magnetic Resonance Report ---
MRI LEFT FOOT WITHOUT AND WITH CONTRAST INDICATION / CLINICAL INFORMATION: E11.621. Type 2 diabetes with history of foot ulcer. TECHNIQUE: Multiplanar, multisequence MR images were obtained. Pre and postcontrast sequences were ob tained. 16 mL Clariscan injected IV. COMPARISON: 03/06/2021 FINDINGS: BONES: Distal great toe phalanx resection. At the residual proximal great toe phalanx there is increa sed edema and enhancement with mild surrounding soft tissue swelling. Additionally, there is interval development of focal edema at the dorsal first metatarsal base. No fracture. JOINTS: No significant arthritis. No significant joint effusion or synovitis. MUSCLES: No significant abnormality. FLEXOR TENDONS: No significant abnormality. EXTENSOR TENDONS: No significant abnormality. PERONEAL TENDONS: No significant abnormality. LIGAMENTS: No significant abnormality. SOFT TISSUES: Great toe plantar ulceration. Neuropathic edema. ADDITIONAL FINDINGS: None. IMPRESSION: 1. Interval great toe distal phalanx amputation with recurrent osteomyelitis at the great toe stump. 2. Nonspecific edema at the first metatarsal near the TMT joint. This is nonspecific and is felt to b e degenerative/neuropathic over osteomyelitis in the absence of adjacent soft tissue changes. Report dictated by: Gurpreet Méndez MD Report dictated on: 02/21/2022 8:16 AM I have reviewed the images, agree with this report, and edited this report as needed. Signer Name: Froilan Sr MD Signed: 02/21/2022 11:33 AM Workstation Name: [id number]
== END 2022-02-21 06:44 | disposition home or self-care (01) ==
LOC: MRI 06:43
PROVIDERS: ATTEND Surgery
DX: E11.621 Type 2 diabetes mellitus with foot ulcer (principal); L97.529 Non-pressure chronic ulcer of other part of left foot with unspecified severity; M86.8X7 Other osteomyelitis, ankle and foot; M79.89 Other specified soft tissue disorders
CPT/HCPCS: 73720; A9575

== ENCOUNTER 2022-02-28 08:10 | Outpatient (CLI) | payer BC ==
[2022-02-28] MEDS ORDERED: LIDOCAINE (4%) 40 MG/ML TOPICAL SOLN 50 ML BOTTLE TP ONE (09:30)
== END 2022-02-28 08:11 | disposition home or self-care (01) ==
LOC: WOUND 08:10
PROVIDERS: ATTEND Surgery
DX: E11.621 Type 2 diabetes mellitus with foot ulcer (principal); L97.521 Non-pressure chronic ulcer of other part of left foot limited to breakdown of skin; E11.69 Type 2 diabetes mellitus with other specified complication; M86.672 Other chronic osteomyelitis, left ankle and foot; I10 Essential (primary) hypertension; Z90.710 Acquired absence of both cervix and uterus; Z79.899 Other long term (current) drug therapy
CPT/HCPCS: 99213; G0463

== ENCOUNTER 2022-03-27 05:51 | Outpatient (CLI) | payer BC ==
--- NOTE | 2022-03-27 06:26 | XRay Report ---
CHEST 2 VIEWS INDICATION / CLINICAL INFORMATION: HBO CLEARANCE LEFT GREAT TOE WOUND HEALING'. FINDINGS: SUPPORT DEVICES: None. HEART / MEDIASTINUM: No significant abnormality. LUNGS / PLEURA: No significant pulmonary or pleural abnormality. No pneumothorax. ADDITIONAL FINDINGS: No significant additional findings. IMPRESSION: 1. No acute findings. Signer Name: Monty Day MD Signed: 03/27/2022 6:21 AM Workstation Name: [id number]
== END 2022-03-27 05:52 | disposition home or self-care (01) ==
LOC: XRAY 05:51
PROVIDERS: ATTEND Surgery
DX: M86.672 Other chronic osteomyelitis, left ankle and foot (principal)
CPT/HCPCS: 71046

== ENCOUNTER 2022-04-09 09:33 | Outpatient (CLI) | payer BC | END 2022-04-09 09:34 | disposition home or self-care (01) | LOC: WOUND 09:33 | PROVIDERS: ATTEND Surgery | DX: E11.621 Type 2 diabetes mellitus with foot ulcer (principal); L97.522 Non-pressure chronic ulcer of other part of left foot with fat layer exposed; T87.89 Other complications of amputation stump; E11.69 Type 2 diabetes mellitus with other specified complication; M86.672 Other chronic osteomyelitis, left ankle and foot; L84 Corns and callosities; I10 Essential (primary) hypertension; Z90.710 Acquired absence of both cervix and uterus; Z79.899 Other long term (current) drug therapy; Y83.5 Amputation of limb(s) as the cause of abnormal reaction of the patient, or of later complication, without mention of misadventure at the time of the procedure | CPT/HCPCS: 82962; G0277; 99183 ==

== ENCOUNTER 2022-04-10 08:29 | Outpatient (CLI) | payer BC | END 2022-04-10 08:30 | disposition home or self-care (01) | LOC: WOUND 08:29 | PROVIDERS: ATTEND Internal Medicine | DX: E11.621 Type 2 diabetes mellitus with foot ulcer (principal); L97.522 Non-pressure chronic ulcer of other part of left foot with fat layer exposed; T87.89 Other complications of amputation stump; E11.69 Type 2 diabetes mellitus with other specified complication; M86.672 Other chronic osteomyelitis, left ankle and foot; L84 Corns and callosities; I10 Essential (primary) hypertension; Z90.710 Acquired absence of both cervix and uterus; Z79.899 Other long term (current) drug therapy; Y83.5 Amputation of limb(s) as the cause of abnormal reaction of the patient, or of later complication, without mention of misadventure at the time of the procedure | CPT/HCPCS: 82962; G0277; 99183 ==

== ENCOUNTER 2022-04-11 08:54 | Outpatient (CLI) | payer BC | END 2022-04-11 08:55 | disposition home or self-care (01) | LOC: WOUND 08:54 | PROVIDERS: ATTEND Surgery | DX: E11.621 Type 2 diabetes mellitus with foot ulcer (principal); L97.522 Non-pressure chronic ulcer of other part of left foot with fat layer exposed; T87.89 Other complications of amputation stump; E11.69 Type 2 diabetes mellitus with other specified complication; M86.672 Other chronic osteomyelitis, left ankle and foot; L84 Corns and callosities; I10 Essential (primary) hypertension; Z90.710 Acquired absence of both cervix and uterus; Z79.899 Other long term (current) drug therapy; Y83.5 Amputation of limb(s) as the cause of abnormal reaction of the patient, or of later complication, without mention of misadventure at the time of the procedure | CPT/HCPCS: 82962; G0277; 99183 ==

== ENCOUNTER 2022-04-12 08:49 | Outpatient (CLI) | payer BC | END 2022-04-12 08:50 | disposition home or self-care (01) | LOC: WOUND 08:49 | PROVIDERS: ATTEND Internal Medicine | DX: E11.621 Type 2 diabetes mellitus with foot ulcer (principal); L97.522 Non-pressure chronic ulcer of other part of left foot with fat layer exposed; T87.89 Other complications of amputation stump; E11.69 Type 2 diabetes mellitus with other specified complication; M86.672 Other chronic osteomyelitis, left ankle and foot; L84 Corns and callosities; I10 Essential (primary) hypertension; Z90.710 Acquired absence of both cervix and uterus; Z79.899 Other long term (current) drug therapy; Y83.5 Amputation of limb(s) as the cause of abnormal reaction of the patient, or of later complication, without mention of misadventure at the time of the procedure | CPT/HCPCS: 82962; G0277; 99183 ==

== ENCOUNTER 2022-04-13 08:52 | Outpatient (CLI) | payer BC | END 2022-04-13 08:53 | disposition home or self-care (01) | LOC: WOUND 08:52 | PROVIDERS: ATTEND Surgery | DX: E11.621 Type 2 diabetes mellitus with foot ulcer (principal); L97.522 Non-pressure chronic ulcer of other part of left foot with fat layer exposed; T87.89 Other complications of amputation stump; E11.69 Type 2 diabetes mellitus with other specified complication; M86.672 Other chronic osteomyelitis, left ankle and foot; L84 Corns and callosities; I10 Essential (primary) hypertension; Z90.710 Acquired absence of both cervix and uterus; Z79.899 Other long term (current) drug therapy; Y83.5 Amputation of limb(s) as the cause of abnormal reaction of the patient, or of later complication, without mention of misadventure at the time of the procedure | CPT/HCPCS: 82962; G0277; 99183 ==

== ENCOUNTER 2022-04-16 08:35 | Outpatient (CLI) | payer BC | END 2022-04-16 08:36 | disposition home or self-care (01) | LOC: WOUND 08:35 | PROVIDERS: ATTEND Surgery | DX: E11.621 Type 2 diabetes mellitus with foot ulcer (principal); L97.522 Non-pressure chronic ulcer of other part of left foot with fat layer exposed; T87.89 Other complications of amputation stump; E11.69 Type 2 diabetes mellitus with other specified complication; M86.672 Other chronic osteomyelitis, left ankle and foot; L84 Corns and callosities; I10 Essential (primary) hypertension; Z90.710 Acquired absence of both cervix and uterus; Z79.899 Other long term (current) drug therapy; Y83.5 Amputation of limb(s) as the cause of abnormal reaction of the patient, or of later complication, without mention of misadventure at the time of the procedure | CPT/HCPCS: 82962; G0277; 99183 ==

== ENCOUNTER 2022-04-17 08:37 | Outpatient (CLI) | payer BC | END 2022-04-17 08:38 | disposition home or self-care (01) | LOC: WOUND 08:37 | PROVIDERS: ATTEND Internal Medicine | DX: E11.621 Type 2 diabetes mellitus with foot ulcer (principal); L97.522 Non-pressure chronic ulcer of other part of left foot with fat layer exposed; T87.89 Other complications of amputation stump; E11.69 Type 2 diabetes mellitus with other specified complication; M86.672 Other chronic osteomyelitis, left ankle and foot; L84 Corns and callosities; I10 Essential (primary) hypertension; Z90.710 Acquired absence of both cervix and uterus; Z79.899 Other long term (current) drug therapy; Y83.5 Amputation of limb(s) as the cause of abnormal reaction of the patient, or of later complication, without mention of misadventure at the time of the procedure | CPT/HCPCS: 82962; G0277; 99183 ==

== ENCOUNTER 2022-04-18 08:56 | Outpatient (CLI) | payer BC | END 2022-04-18 08:57 | disposition home or self-care (01) | LOC: WOUND 08:56 | PROVIDERS: ATTEND Surgery | DX: E11.621 Type 2 diabetes mellitus with foot ulcer (principal); L97.522 Non-pressure chronic ulcer of other part of left foot with fat layer exposed; T87.89 Other complications of amputation stump; E11.69 Type 2 diabetes mellitus with other specified complication; M86.672 Other chronic osteomyelitis, left ankle and foot; L84 Corns and callosities; I10 Essential (primary) hypertension; Z90.710 Acquired absence of both cervix and uterus; Z79.899 Other long term (current) drug therapy; Y83.5 Amputation of limb(s) as the cause of abnormal reaction of the patient, or of later complication, without mention of misadventure at the time of the procedure | CPT/HCPCS: 82962; G0277; 99183 ==

== ENCOUNTER 2022-04-23 08:36 | Outpatient (CLI) | payer BC | END 2022-04-23 08:37 | disposition home or self-care (01) | LOC: WOUND 08:36 | PROVIDERS: ATTEND Surgery | DX: E11.621 Type 2 diabetes mellitus with foot ulcer (principal); L97.522 Non-pressure chronic ulcer of other part of left foot with fat layer exposed; T87.89 Other complications of amputation stump; E11.69 Type 2 diabetes mellitus with other specified complication; M86.672 Other chronic osteomyelitis, left ankle and foot; L84 Corns and callosities; I10 Essential (primary) hypertension; Z90.710 Acquired absence of both cervix and uterus; Z79.899 Other long term (current) drug therapy; Y83.5 Amputation of limb(s) as the cause of abnormal reaction of the patient, or of later complication, without mention of misadventure at the time of the procedure | CPT/HCPCS: 82962; G0277; 99183 ==

== ENCOUNTER 2022-04-24 08:34 | Outpatient (CLI) | payer BC | END 2022-04-24 08:35 | disposition home or self-care (01) | LOC: WOUND 08:34 | PROVIDERS: ATTEND Internal Medicine | DX: E11.621 Type 2 diabetes mellitus with foot ulcer (principal); L97.522 Non-pressure chronic ulcer of other part of left foot with fat layer exposed; T87.89 Other complications of amputation stump; E11.69 Type 2 diabetes mellitus with other specified complication; M86.672 Other chronic osteomyelitis, left ankle and foot; L84 Corns and callosities; I10 Essential (primary) hypertension; Z90.710 Acquired absence of both cervix and uterus; Z79.899 Other long term (current) drug therapy; Y83.5 Amputation of limb(s) as the cause of abnormal reaction of the patient, or of later complication, without mention of misadventure at the time of the procedure | CPT/HCPCS: 82962; G0277; 99183 ==

== ENCOUNTER 2022-04-25 08:49 | Outpatient (CLI) | payer BC | END 2022-04-25 08:50 | disposition home or self-care (01) | LOC: WOUND 08:49 | PROVIDERS: ATTEND Surgery | DX: T87.89 Other complications of amputation stump (principal); E11.621 Type 2 diabetes mellitus with foot ulcer; L97.522 Non-pressure chronic ulcer of other part of left foot with fat layer exposed; E11.69 Type 2 diabetes mellitus with other specified complication; M86.672 Other chronic osteomyelitis, left ankle and foot; L84 Corns and callosities; I10 Essential (primary) hypertension; Z90.710 Acquired absence of both cervix and uterus; Z79.899 Other long term (current) drug therapy; Y83.5 Amputation of limb(s) as the cause of abnormal reaction of the patient, or of later complication, without mention of misadventure at the time of the procedure | CPT/HCPCS: 82962 ==

== ENCOUNTER 2022-04-26 13:02 | Outpatient (CLI) | payer BC | END 2022-04-26 13:03 | disposition home or self-care (01) | LOC: WOUND 13:02 | PROVIDERS: ATTEND Internal Medicine | DX: E11.621 Type 2 diabetes mellitus with foot ulcer (principal); L97.522 Non-pressure chronic ulcer of other part of left foot with fat layer exposed; T87.89 Other complications of amputation stump; E11.69 Type 2 diabetes mellitus with other specified complication; M86.672 Other chronic osteomyelitis, left ankle and foot; L84 Corns and callosities; I10 Essential (primary) hypertension; Z90.710 Acquired absence of both cervix and uterus; Z79.899 Other long term (current) drug therapy; Y83.5 Amputation of limb(s) as the cause of abnormal reaction of the patient, or of later complication, without mention of misadventure at the time of the procedure | CPT/HCPCS: 82962; G0277; 99183 ==

== ENCOUNTER 2022-04-27 08:58 | Outpatient (CLI) | payer BC | END 2022-04-27 08:59 | disposition home or self-care (01) | LOC: WOUND 08:58 | PROVIDERS: ATTEND Surgery | DX: E11.621 Type 2 diabetes mellitus with foot ulcer (principal); L97.522 Non-pressure chronic ulcer of other part of left foot with fat layer exposed; T87.89 Other complications of amputation stump; E11.69 Type 2 diabetes mellitus with other specified complication; M86.672 Other chronic osteomyelitis, left ankle and foot; L84 Corns and callosities; I10 Essential (primary) hypertension; Z90.710 Acquired absence of both cervix and uterus; Z79.899 Other long term (current) drug therapy; Y83.5 Amputation of limb(s) as the cause of abnormal reaction of the patient, or of later complication, without mention of misadventure at the time of the procedure | CPT/HCPCS: 82962; G0277; 99183 ==